=== PATIENT | male | born 1945 | race Caucasian/White ===

== ENCOUNTER 2016-07-03 16:45 | Inpatient (IN) | payer OTHER, MEDICARE ==
[~2016-07-03] VITALS: Ht 182.9 cm; Wt 65.0 kg
[2016-07-03] VITALS (7 sets, daily range): BP systolic 107–132; BP diastolic 73–89; PULSE 71–84; RESP 15–32; O2SAT 88–100
[~2016-07-03 16:45] MED LIST: AMLO-39 PO; LANS15CA6 PO; Lactulose PO; NADO20TA PO
[2016-07-03 17:38] LABS: Mean Corpuscular Volume 107.4 fL (81-100)
[2016-07-03 17:42] LABS: BASOPHILS % (AUTO) 0 % (0-3); EOSINOPHILS % (AUTO) 0 % (0-5); Mean Corpuscular Hemoglobin 35.8 pg (27.0-35.0); Platelet Count 122 bil/L (150-400)
--- NOTE | 2016-07-03 17:42 | ED.REPORT ---
HPI-General Illness Date of Service Jul 03, 2016 ED Provider: Steve Hamilton MD A 71 year old male with a history of smoking and hypertension is brought to the ED via EMS due to weakness. The pt has been experiencing falls for approximately one year. Per pt's , he has been falling less frequently in recent months (at a rate of slightly below once per month), but fell two days ago. The fall was unwitnessed and the pt is unsure of the cause. He has been experiencing lower back pain since, but denies other trauma. He was able to ambulate normally with his cane yesterday but was moving more slowly today. He was unable to ambulate properly at all this afternoon. The reports that the pt was unable to move his left leg, though his left arm was functioning normally. He denies left leg pain while walking. The pt has also been experiencing "cold-like" symptoms recently, including a productive cough and rough breath sounds. He denies fever, chills, dysuria, or vomiting. The pt has been seen by multiple specialists for his falls without a diagnosis. Nursing Notes Stated Complaint: GENERALIZED WEAKNESS Chief Complaint: General Complaint Nursing Notes Reviewed: Yes Allergies: Coded Allergies: Penicillins (Verified Allergy, Unknown, 09/30/14) Scheduled Amlodipine (Norvasc) 5 Mg Tablet 5 MG PO DAILY Aspirin (Aspirin) 81 Mg Tablet 81 MG PO DAILY Atorvastatin (Lipitor) 40 Mg Tablet 40 MG PO HS Nadolol (Nadolol) 20 Mg Tablet 20 MG PO DAILY Miscellaneous Medications ([stelara]) Unknown Strength Unknown Dose INJ General Time Seen by MD: 17:33 Chief Complaint Other (Fall/weakness) Hx Obtained From: Patient, Spouse, EMS Arrived By: Walk-in Sudden in Onset?: No Onset Occurred: More than a week ago... Recent Healthcare: No recent hospitalization, Recent doctor visit Similar Sx Previous: Yes Past Medical History Past Medical History HTN GERD Psoriasis Past Surgical History None Smoking History Current Every Day Smoker ("working on quitting") Social History Alcohol Use: "Social" Drug Use: Denies drug use Ambulatory Status Independent Review of Systems "rough breath sounds" Full Review of Systems Constitutional: Reports: Weakness - generalized, Denies: Chills, Fever Respiratory: Reports: Prod cough, clear GI: Denies: Vomiting Male: Denies Dysuria Musculoskeletal: Reports: Back pain Skin: Denies Rash Complete sys rev & neg: except as marked. Physical Exam Vital Signs Vital Signs Date Time Temp Pulse Resp B/P Pulse Ox O2 Delivery O2 Flow Rate FiO2 07/03/16 20:03 78 18 112/75 95 07/03/16 19:37 84 130/83 96 Nasal Cannula 3 07/03/16 18:20 81 25 107/73 88 Room Air 07/03/16 16:54 36.0 84 32 116/89 100 6 Initial VS: Reviewed General/Constitutional: Awake, Alert Head / Eyes: Atraumatic, Normocephalic, PERRL, EOMI ENT: Atraumatic, Airway patent, Mucous membranes moist Neck: Atraumatic, Supple, Full range of motion Respiratory / Chest: Atraumatic, Breath sounds = bilat, No respiratory distress diffuse expiratory wheezing tachypneic Cardiovascular: Heart rate NL, Regular rhythm distant heart sounds Abdomen: Atraumatic, Soft, No guarding, No rebound diffuse abdominal pain Back: Atraumatic, Full range of motion Upper Extremities Upper Extremity / MS: Atraumatic, Full range of motion Lower Extremity / Pelvis / MS: Atraumatic Skin: Atraumatic, Color NL, No rash, Warm, Dry Neurologic: Oriented X3, Speech NL left arm and left leg drift sensory loss of left side of face and right leg (pin prick less sharp) Psychiatric: Affect NL, Mood NL Interpretation & Diagnostics Interpretation & Diagnostics: MRI/MRA Head and Neck 12/21/2016: IMPRESSION: 1. No evidence of acute infarction 2. Central atrophy and small vessel ischemic changes, as described. 3. Normal intracranial circulation 4. Mild up to 50% narrowing at the origin of the left vertebral artery. Moderate to severe greater than 70% narrowing at the origin of the right vertebral artery. Lab Results Interpretation Result Diagram: 07/03/16 1657 07/03/16 1657 Test 07/03/16 16:57 07/03/16 19:45 White Blood Count 8.1th/mm3 (3.8-10.1) Red Blood Count 3.91mil/mm3 (4.40-5.80) Hemoglobin 14.0g/dL (13.8-17.2) Hematocrit 42.0% (41.0-50.0) Mean Corpuscular Volume 107.4fL (81-100) Mean Corpuscular Hemoglobin 35.8pg (27.0-35.0) Mean Corpuscular Hemoglobin Concent 33.3% (32.0-37.0) Red Cell Distribution Width 14.7% (12.3-15.4) Platelet Count 122bil/L (150-400) Neutrophils (%) (Auto) 73% (40-74) Lymphocytes (%) (Auto) 13% (14-46) Monocytes (%) (Auto) 5% (4-12) Eosinophils (%) (Auto) 0% (0-5) Basophils (%) (Auto) 0% (0-3) Band Neutrophils % 9% (1-5) Hold Purple Top Tube Received (Received) Hold Blue Top Tube Received (Received) Sodium Level 141mEq/L (134-144) Potassium Level 4.5mEq/L (3.5-5.2) Chloride Level 92mEq/L (97-108) Carbon Dioxide Level 20mmol/L (18-29) Blood Urea Nitrogen 31mg/dL (8-27) Creatinine 1.42mg/dL (0.76-1.27) Estimat Glomerular Filtration Rate 53mL/min (>59) Glucose Level 99mg/dL (60-99) Calcium Level 9.8mg/dL (8.5-10.1) Total Bilirubin 0.9mg/dL (0.0-1.2) Aspartate Amino Transf (AST/SGOT) 305U/L (0-50) Alanine Aminotransferase (ALT/SGPT) 112U/L (0-44) Alkaline Phosphatase 162U/L (25-160) Total Protein 8.6g/dL (6.4-8.4) Albumin 3.7g/dL (3.4-5.0) Hold Red Top Tube Received (Received) Hold [place] Top Tube Received (Received) Lactic Acid Level 3.2mmol/L (0.4-2.0) ECG Interpretation ECG Interpretation: normal sinus rhythm with a rate of 82 Time: 17:32 Interpreted by: ED physician X-Ray Chest Interpretation Chest Xray Interpretation: IMPRESSION: Persistent minimal costophrenic angle blunting without gross consolidation. Dictated by: Estelle Lowe M.D. on 07/03/2016 at 17:43 Approved by: Estelle Lowe M.D. on 07/03/2016 at 17:44 Interpretation / Wet Read by: Interpret - Radiologist Re-Eval/Medical Decision Source of Hx: Old records Time of Eval: 18:55 Patient Status: Condition improved Re-Evaluation/Progress Note: Pt rechecked, who is resting comfortably. Neurologic exam is normal. He is informed of lab results and diagnosis. Options for both admission for discharge are discussed, and pt chooses to remain in the hospital. The pt understands and agrees with the plan. All questions are addressed at this time. Consultation : Referral / Consult Name: Danna Calixto DO Consulted With: Hospitalist Call Returned at: 19:54 Granite Installer: Agrees with eval, Agrees with plan, Accepts admit Note: Spoke with Dr. Calixto, hospitalist, regarding pt's case. Dr. Calixto agrees with the evaluation and agrees to admit the pt. Counseled Regarding: Diagnosis, Lab results, Need for admission Discharge & Departure Primary Impression: Weakness Additional Impressions: Hypoxia COPD exacerbation Disposition: ADMITTED TO HOSPITAL Discharge Condition All VS Reviewed: Yes Condition: Stable Referrals: Piotr Samano MD (PCP) Maxx Attestation Portions of this note were transcribed by Sukhjinder Hernandez. I, Dr. Hamilton personally performed the history, physical exam and medical decision-making; I reviewed and confirmed the accuracy of the information in the transcribed note. Signed by: Maxx Christianson, 07/03/2016 and 19:59. copies to: Piotr Samano MD Risk Factors NIH Stroke Scale Level of Consciousness: Alert and responsive (0) Ask Month & Age: Both questions right (0) Open/Close Eyes/Hand Spring Coiler: Performs both tasks (0) Horizontal EO Movements: None (0) Visual Aaron: No visual loss (0) Facial Palsy: Normal symmetry (0) Right Arm Motor Drift (10s): No drift 10 sec (0) Left Arm Motor Drift (10s): No drift 10 sec (0) Right Leg Motor Drift (5s): No drift 5 sec (0) Left Leg Motor Drift (5s): No drift 5 sec (0) Limb Ataxia FNF/Heel-Prasad: No ataxia (0) Sensation (Arms/Legs/Face): Pinprick less sharp (1) (inconsistent) Language Aphasia: No aphasia, normal (0) Dysarthria: No dysarthria, normal (0) Extinction/Inattention: No exctinct/inattent (0) NIHSS Score: 3 Time NIHSS Performed: 17:55 Date NIHSS Performed: Jul 03, 2016 Steve Hamilton MD Jul 03, 2016 17:42 SUKHJINDER HERNANDEZ Jul 03, 2016 18:17
--- NOTE | 2016-07-03 17:45 | DRSVH ---
PROCEDURE: X-RAY CHEST ONE VIEW, PORTABLE ([id number]) INDICATIONS: cough TECHNIQUE: One view of the chest was acquired. COMPARISON: [facility], CR, CHEST 1VW (PORTABLE), 09/30/2014, 10:04. [facility], CR, XR CHEST 2VW, 07/17/2015, 11:49. FINDINGS: Surgical changes and devices: None. Lungs and pleura: There is a persistence appearance of costophrenic angle blunting. No gross consolid ations. Mediastinum: Mediastinal contours appear normal. Heart size is normal. Bones and chest wall: No suspicious bony lesions. Overlying soft tissues appear unremarkable. IMPRESSION: Persistent minimal costophrenic angle blunting without gross consolidation. Dictated by: Estelle Lowe M.D. on 07/03/2016 at 17:43 Approved by: Estelle Lowe M.D. on 07/03/2016 at 17:44
[2016-07-03 18:00] LABS: NEUTROPHILS % (AUTO) 73 % (40-74)
[2016-07-03 18:01] LABS: MONOCYTES % (AUTO) 5 % (4-12)
[2016-07-03] MEDS ORDERED: cefTRIAXone Inj 2,000 MG in Dextrose 5% Minibag Plus 50 ML IV ONE (19:15)
[2016-07-03] MEDS ORDERED: MethylprednisoLONE Sodium Succinate 62.5 mg/mL 2 mL Inj IVPUSH ONE (19:15)
[2016-07-03] MEDS ORDERED: Azithromycin Inj 500 MG in Dextrose 5% 250 ML IV ONE (19:15)
[2016-07-03] MEDS ORDERED: Polyethylene Glycol (PEG) 17 Gm Powder PO PRN ×2 (20:00→20:10)
[2016-07-03] MEDS ORDERED: Ondansetron 2 mg/mL 2 mL Inj IVPUSH PRN (20:00)
[2016-07-03] MEDS ORDERED: Albuterol 2.5 mg/3 mL Inhalation Solution NEB PRN (20:00)
[2016-07-03] MEDS ORDERED: Alum-Mag Hydrox-Simeth 30 mL Suspension PO PRN ×2 (20:00→20:10)
[2016-07-03] MEDS ORDERED: Ondansetron 2 mg/mL 2 mL Inj IV PRN (20:10)
[2016-07-03] MEDS ORDERED: ASPI-973 PO (20:18)
[2016-07-03] MEDS ORDERED: LIP40 PO (20:18)
[2016-07-03] MEDS ORDERED: Albuterol-Ipratropium 3 mL Inhalation Solution NEB SCH (20:30)
[2016-07-03] MEDS ORDERED: stelara INJ (20:41)
[2016-07-03 21:20] LABS: APPEARANCE,URINE CLEAR (CLEAR,HAZY); COLOR,URINE YELLOW (YELLOW); OCCULT BLOOD,URINE SMALL (NEGATIVE); PH,URINE 5.5 (5.0-8.0); UROBILINOGEN,URINE NORMAL (NORMAL)
[2016-07-03] MEDS ORDERED: 0.9% Sodium Chloride 250 ML ONE (21:21)
[2016-07-03] MEDS: Heparin 5,000 Unit/mL Inj SUBQ SCH (21:37)
[2016-07-03] MEDS: Albuterol-Ipratropium 3 mL Inhalation Solution NEB SCH (21:40)
--- NOTE | 2016-07-03 22:16 | NUR ---
Admit Note Pt arrived to floor at around 2100. Alert and oriented. Walked to bed with 2x assist but very unsteady and leaning back. present for a little and then left home. Med req and admit done in ER. Swallow screen passed. Q4 neuro checks normal initial.
[2016-07-03] MEDS: 0.9% Sodium Chloride 1,000 ML IV SCH (22:24)
[2016-07-04] VITALS (13 sets, daily range): BP systolic 125–151; BP diastolic 73–95; PULSE 64–75; RESP 16–20; O2SAT 76–97
[2016-07-04] MEDS: Heparin 5,000 Unit/mL Inj SUBQ SCH ×4 (00:30→23:45)
--- NOTE | 2016-07-04 00:40 | PCM.HPMED ---
Subjective Date of Service Jul 03, 2016 Primary Provider: Admitting Physician: Danna Calixto DO Primary Care Physician: Piotr Samano MD Attending Physician: Danna Calixto DO Admit Status: From the Emergency Department Chief Complaint: Generalized weakness History of Present Illness: Patient is a 71 year old male with a history of hypertension, alcohol and tobacco abuse, psoriasis, possible cirrhosis and COPD is brought to the ED via EMS due to weakness. The patient has been experiencing falls for approximately one year. Per patient's , he has been falling less frequently in recent months, but fell two days ago during dinner. Patient states at that time he felt like he was about to pass out. The fall was unwitnessed and the patient is unsure of the cause. He has been experiencing lower back pain since, but denies other trauma. He denies any current pain and/or use of Tylenol and/or Ibuprofen. He was able to ambulate normally with his cane yesterday but was moving more slowly today. He was unable to ambulate properly at all this afternoon. The reports that the patient was unable to move his left leg, though his left arm was functioning normally. He denies left leg pain while walking. The patient has also been experiencing "cold-like" symptoms recently, including a productive cough and rough breath sounds. He denies fever, chills, dysuria, or vomiting. The patient has been seen by multiple specialists for his falls without a diagnosis. He states he has been a heavy drinker for bout 50 years, currently he is having two drinks per day. His last drink was today and consisted of two glasses of wine. He has been smoking for about 30 years and currently is smoking one pack a day. His PCP is Dr. Samano at [facility] in [place]. In the ED temp was 36.0 C, pulse 81, respiration 25, BP 107/73, pulse ox 88% on room air. Patient's CBC significant for normal WBC at 8.1, H&H 14.0&42. Chem Na 141, K 4.5, Cl 92, CO2 20, BUN 31, Cr 1.42, lactic acid 3.2, AST 305, ALT 112. EKG showed NSR with a rate of 82. Chest x-ray revealed persistent minimal costophrenic angle blunting without gross consolidation. Review of Systems: Complete review of systems was negative except as noted in HPI. Allergies Coded Allergies: Penicillins (Verified Allergy, Unknown, 09/30/14) Home Medications Amlodipine 5 mg PO daily Nadolol 20 mg PO daily Aspirin 81 mg PO daily Atorvastatin 40 mg PO daily Stelara, IM injections for psoriasis treatment given last month (first dose), next dose scheduled later this month PMH HTN GERD Psoriasis Possible COPD Possible cirrhosis Alcohol dependence Nicotine dependence Surgical History None Family History Heart disease in father and brother Social History Hx Alcohol Use: Yes Alcoholic Drinks Per Day: 3/day; wine Hx Substance Use: No Hx Tobacco Use: Yes Smoking Status: Current Every Day Smoker ("working on quitting") Living Arrangement: with Family Exam Vital Signs Vital Sign - Last Date Time Temp Pulse Resp B/P Pulse Ox O2 Delivery O2 Flow Rate FiO2 07/03/16 21:40 71 18 97 Nasal Cannula 2.00 07/03/16 21:10 36.8 132/83 Exam General: Alert, Cooperative, No Acute Distress Head: Normal (atraumatic) Eyes: PERRLA, EOMI Nose: Mucous Membr Moist/[place] Mouth: Mucous Membr Moist/[place] Neck: Supple (non-tender, no lymphadenopaty, no thyromegaly) Chest & Lungs: Diminished breath sounds (diffuse), diffuse expiratory wheezing b/l anterior > posterior Cardiovascular: RRR, No Murmurs/Rubs/Gallops Abdomen: Non-distended, No masses, Normoactive bowel tones, Soft, mild tenderness to palpation at the RUQ Musculoskeletal: lateral left hip tender to palpation, decreased, painful ROM on internal rotation Extremities: No edema, psoriatic plaques on the left foot Neurological: Grossly Neurologically Intact, Normal Speech, Strength Normal 4/ 4 ext, Sensation Intact, mild tremor (at baseline per ) Lab and Diagnostics Labs Ammonia level pending Result Diagram: 07/03/16 1657 07/03/16 1657 Microbiology Blood cultures pending X-Rays, CTs and MRIs PROCEDURE: X-RAY CHEST ONE VIEW, PORTABLE ([id number]) IMPRESSION: Persistent minimal costophrenic angle blunting without gross consolidation. Dictated by: Estelle Lowe M.D. on 07/03/2016 at 17:43 Approved by: Estelle Lowe M.D. on 07/03/2016 at 17:[address] Hamilton, MRI/MRA Head & Neck done in December of 2015 showed: 1. No evidence of infarction 2. Central atrophy and small vessel ischemic changes 3. Normal intracranial circulation 4. Mild up to 50% narrowing at the origin of the left vertebral artery. Moderate to severe greater than 70% narrowing at the origin of the right vertebral artery. 12-lead ECG NSR with a rate of 82 Assessment & Plan This is a 71 year old male with a history of hypertension, alcohol and tobacco abuse, psoriasis, possible cirrhosis and COPD admitted for hypoxia and work up of generalized weakness. # Hypoxia, acute, present on admission - SpO2 88% on RA on admission - O2 2L NC, O2 goal 90-92% - AccuNeb q2h PRN and DuoNeb q6h - Continue to monitor # Possible COPD exacerbation, acute, present on admission - Patient is a chronic smoker, he states he was told "he might have COPD", not on O2 at home, admits to pursed lip breathing - URI symptoms x 10 days, patient received a dose of Azithromycin and Ceftriaxone as well as Methylprednisolone 125 mg once in the ER - CXR showed persistent costophrenic angle blunting w/o gross consolidation - CHARITY resp. viruses panel pending - Will continue antibiotics (9% band neutrophils): check for QT on EKG; also patient has noted allergy to penicillins, monitor for any side effects - Start Prednisone, 60 mg PO daily, continue supplemental O2, continue to monitor # Possible TIA, acute, present on admission - Reported left leg weakness on admission, though normal left arm function - Hx of multiple falls, worked up by multiple specialists w/o a diagnosis - CT brain w/o con in 2014 showed chronic microvascular ischemic changes - MRI/MRA Head & Neck done in December of 2015 showed no evidence of infarction, central atrophy and small vessel ischemic changes, normal intracranial circulation, mild up to 50% narrowing at the origin of the left vertebral artery , moderate to severe greater than 70% narrowing at the origin of the right vertebral artery. - Swallow eval normal - Left leg weakness still present - PT and OT eval in the morning - MR brain m/o con in the morning, consider ECHO # Anion gap metabolic acidosis, acute, present on admission - Notable elevated lactic acid of 3.2 - NS IVF at 125 mls/hr and monitor lactic acid levels # Chronic renal insufficiency, present on admission, stable - Cr of 1.42 on admission, compared to 1.47 as of September 2014 - Avoid nephrotoxic meds # Elevated transaminase level, chronic, present on admission - AST & ALT have been previously elevated, however, doubled since 2015; current AST & ALT are 305 & 112, consistent with EtOH use - Patient previously denied any hx of blood transfusions, tattoos, IV drug use or hx of hepatitis - Hepatitis panel negative in 2015 - Recommend outpatient work up with PCP # Possible acute EtOH induced hepatitis and/or cirrhosis, unclear acuity - Worsening AST& ALT levels would be consistent for EtOH induced hepatitis - US abdomen in September 2014 revealed diffusely heterogeneous liver echotexture w/ o sonographic explanation for elevated transaminase levels - Ammonia labs pending # EtOH dependence, chronic, present on admission -Hx of daily alcohol use for years - Initiate CIWA protocol if signs of EtOH withdraw - ECHO to look for EtOH induced cardiomegaly # Thrombocytopenia, unknown acuity, present on admission - Platelet count 122 - INR pending # Hip pain, acute, present on admission - Most likely d/t fall 2 days ago - Very tender lateral left hip to palpation with decreased internal rotation - X-ray left hip in the morning - Tramadol 50 mg for pain control # Hypertension, chronic, stable - Continue home medications Pain Evaluation: Adequate Pain Control GI Prophylaxis: H2 pam VTE Prophylaxis: Sub-Q Heparin (Unfractionated) Resuscitation Status: CPR: Attempt Resuscitation Attending Statement The patient was seen and examined together with house staff on 07/03/2016 and I agree with the history, exam and plan as outlined in the note above. copies to: Piotr Samano MD, Oksana S DO Jul 03, 2016 22:27 Danna Calixto DO Jul 04, 2016 02:56
[2016-07-04 00:59] LABS: INR 0.95 ratio
[2016-07-04] MEDS: Albuterol-Ipratropium 3 mL Inhalation Solution NEB SCH ×4 (02:30→19:50)
[2016-07-04] MEDS: 0.9% Sodium Chloride 1,000 ML IV SCH ×2 (06:35→14:58)
[2016-07-04] MEDS ORDERED: predniSONE 20 mg Tablet PO SCH (08:30)
[2016-07-04 08:31] LABS: BASOPHILS % (AUTO) 0 % (0-3); EOSINOPHILS % (AUTO) 0 % (0-5); MONOCYTES % (AUTO) 3.7 % (4-12); NEUTROPHILS % (AUTO) 89.8 % (40-74); Platelet Count 104 bil/L (150-400)
--- NOTE | 2016-07-04 08:57 | NUR ---
Off Unit: Patient transported to radiology via wheelchair accompanied by civilian technician @ approx [phone]. technical data analyst notified.
--- NOTE | 2016-07-04 11:08 | NUR ---
Microbiology: Notified of 4 positive blood cultures and positive for human metapneumovirus. MD notified. Droplet/Contact precautions in place.
--- NOTE | 2016-07-04 11:16 | NUR ---
Evaluation completed. Please go to "Notes" then click on "Assessments and Notes" (bottom left corner of screen). Then select appropriate discipline tab on top of screen.
--- NOTE | 2016-07-04 11:17 | NUR ---
Evaluation completed. Please go to "Notes" then click on "Assessments and Notes" (bottom left corner of screen). Then select appropriate discipline tab on top of screen.
[2016-07-04] MEDS ORDERED: Vancomycin Dose per Pharmacist XX SCH (13:30)
[2016-07-04] MEDS ORDERED: Vancomycin Serum Trough XX ONE (14:15)
[2016-07-04] MEDS ORDERED: Vancomycin Inj 1,500 MG in 0.9% Sodium Chloride 500 ML IV ONE (14:15)
--- NOTE | 2016-07-04 14:56 | PCM.PHAPRO ---
Progress Date of Service: Jul 04, 2016 Generalized weakness Dx: bacteremia, sepsis, MRSA coverage PMH: chronic renal insufficiency (stable), HTN, COPD, GERD, possible cirrhosis vancomycin trough goal 15-20 give vancomycin loading dose 1.5gm x 1 start vancomycin 750mg IV q12h draw next trough 430AM on 07/06 per pharmacy Shlomo Anthony PharmD Jul 04, 2016 14:56
--- NOTE | 2016-07-04 15:14 | DRSVH ---
PROCEDURE: X-RAY PELVIS W/LAT HIP (LT) ([id number]) INDICATIONS: Left hip pain after a fall 2 days ago TECHNIQUE: AP pelvis with lateral view(s) of the left hip(s). COMPARISON: None. FINDINGS: Bones: No fractures or dislocations. Pelvic ring appears intact. No suspicious bony lesions. Soft tissues: The visualized bowel gas pattern is normal. No suspicious soft tissue calcifications. IMPRESSION: No fracture or dislocation. If clinical symptoms persist or clinical suspicion for patho logy is high, a repeat examination in 7-10 days, or advanced imaging such as CT or MRI is suggested f or further evaluation. Dictated by: Sunny Rico M.D. on 07/04/2016 at 9:48 Approved by: Sunny Rico M.D. on 07/04/2016 at 9:50
--- NOTE | 2016-07-04 15:15 | DRSVH ---
[facility] [address] [place] [address] Echocardiogram Report Name: JUDY BECKER WStudy Date: 07/04/2016 Height: 7 2 in Hospital Exam Location: [facility] Weight: 1 43 lb Gender: Male BSA: 1.8 m2 : 1945 Age: 71 yrs BP: 136/8 4 mmHg Reason For Study: CVA Ordering Physician: HOSPITALIST [facility] Performed By: Misty Billings Referring Physician: DELFINO Rivers Interpretation Summary A two-dimensional transthoracic echocardiogram with color flow and Doppler was performed in limited views only. The left ventricle is normal in size, wall thickness, and systolic function without any focal wall motion abnormalities. The ejection fraction is estimated to be 60-65%. LVEF has not changed since prior study. The right ventricle grossly appears normal in size with probable normal systolic function. The left atrial size is normal. Right atrial size is normal. The interatrial septum is intact with no evidence for an atrial septal defect. There is no Doppler evidence for an interatrial shunt. The aortic root is normal size. There is moderate to severe luminal irregularity and echogenicity in the abdominal aorta, suggestive of aortic atherosclerotic disease. No obvious source for cardioembolic CVA/TIA. Procedure: A two-dimensional transthoracic echocardiogram with color flow and Doppler was performed in limited views only. Comparison is made with the echocardiogram of 10-01-14. The patient was in normal sinus rhythm during the exam. Left Ventricle: The left ventricle is normal in size, wall thickness, and systolic function without any focal wall motion abnormalities. The ejection fraction is estimated to be 60-65%. Right Ventricle: The right ventricle grossly appears normal in size with probable normal systolic function. Atria: The left atrial size is normal. Right atrial size is normal. The interatrial septum is intact with no evidence for an atrial septal defect. There is no Doppler evidence for an interatrial shunt. Mitral Valve: The mitral valve is grossly normal. There is no mitral regurgitation noted. Aortic Valve: The aortic valve opens well. No aortic regurgitation is present. Tricuspid Valve: The tricuspid valve is normal in structure and function. Pulmonic Valve: The pulmonic valve is not well seen, but is grossly normal. Great Vessels: The aortic root is normal size. There is severe luminal irregularity and echogenicity in the abdominal aorta, suggestive of aortic atherosclerotic disease. The IVC is of normal diameter and collapses greater than 50% with a sniff. This suggests a low right atrial pressure of 3 mm Hg. Pericardium/ Pleura There is no pericardial effusion. There is no pleural effusion. MMode/2D Measurements & Calculations LVIDd: 4.5 cm LA dimension: 3.3 cm RA long axis Ao root diam LVIDs: 2.9 cm IVC diam: 1.7 cm FS: 36.1 % RA area Aortic Jxn: 2.5 cm IVSd: 0.83 cm Ao Arch Diam (Prox LVPWd: 0.88 cm : 12.7 cm Trans): 2.6 cm RA vol : 29.4 ml RA : 15.9 mm/ RVDd major : 6.0 cm LV west. diameter/BSA LV sys. diameter/BSA RVD1 (basal) RVD2 (mid): 3.0 cm (cm/m^2): 2.5 (cm/m^2): 1.6 Doppler Measurements & Calculations Ao V2 max: 117.6 cm/sec MV E max dennis MV E/A MV dec time Ao max P.5 mmHg : 54.9 cm/sec : 0.67 : 0.25 sec Ao mean P.2 mmHg MV A max dennis : 81.7 cm/sec MV P1/2t: 75.4 msec MV P1/2t max dennis Ao V2 mean : 66.4 cm/sec MVA(P1/2t): 2.9 cm2 Ao V2 VTI: 20.0 cm Reading Physician:MURPHY
--- NOTE | 2016-07-04 16:37 | NUR ---
Activity: Patient encouraged to be OOB to chair for meals per PT recommendation. Refused to be in chair for lunch, however did sit on side of bed for meal. Patient also refusing to get OOB to chair and/or sit on side of bed for dinner. Addendum: 07/04/16 at 1755 by MALLY GARRISON RN Patient decided to sit on side of bed for dinner when tray arrived. Has been sitting on side of bed for approx 45 min. Tolerating well, O2 sats 96%, no c/o increase in hip pain while up.
--- NOTE | 2016-07-04 17:26 | PCM.PNMED ---
Subjective Date of Service Jul 04, 2016 Subjective Renan Campbell is a 71-year-old male with a past medical history significant for hypertension, alcohol and tobacco use disorder, psoriasis, possible cirrhosis and COPD who was admitted for acute respiratory failure and generalized weakness. Hospital day #1. Overnight: There were no acute events. Telemetry overnight was sinus rhythm, heart rate 60 to 80's, without ectopy. The patient is resting in bed comfortably and in no acute distress. He denies headache, shortness of breath, chest pain, abdominal pain, nausea, vomiting, fever, chills, dysuria, diarrhea or constipation. He endorses left hip pain. He is voiding and eliminating without difficulty. He is severely weak and is not ambulating and requires assistance for transfers. . Exam Vital Signs Vital Sign - Last Date Time Temp Pulse Resp B/P Pulse Ox O2 Delivery O2 Flow Rate FiO2 07/04/16 16:45 64 20 95 Room Air 07/04/16 10:56 36.8 151/95 07/04/16 05:45 2.00 Intake and Output 07/03/16 07/03/16 07/04/16 Cumulative From/Thru 15:00 23:00 07:00 07/03/16 16:54 - 07/04/16 06:39 Intake Total 1168 ml 1168 ml Output Total 150 ml 150 ml Balance 1018 ml 1018 ml Intake Oral 118 ml 118 ml IV Total 1050 ml 1050 ml Output Urine Total 150 ml 150 ml # Bowel Movements 0 0 Exam General: Elderly gentleman in no acute distress, cachectic, appropriately interactive HEENT: Normocephalic, atraumatic. External ears without defect. Pupils equal, round, and reactive to light. Anicteric sclerae, moist conjunctivae, and no lid lag. Oropharynx free of erythema and cobble stoning with moist mucosa. Neck: Supple with full range of motion. No jugular venous distension. No bruits. No lymphadenopathy or thyromegaly. Cardiovascular: Regular rate and rhythm with no murmurs, rubs, or gallops appreciated Pulmonary: Clear to auscultation bilaterally with no crackles, wheezes, or rhonchi. Normal respiratory effort with no use of accessory muscles. Abdomen: Soft, scaphoid, nontender, nondistended. No hepatosplenomegaly or masses appreciated. Extremities: No clubbing, cyanosis, or edema. Pinpoint tenderness over left posterior hip. Skin: Psoriatic rash on left ankle with mild erythema and warmth. Neurological: Cranial nerves grossly intact. Severe generalized weakness Psychiatric: Normal mood and affect. Alert and oriented to person, place, and time. . IVs and Medications Medications Reviewed: Medications were reviewed in detail Lab and Diagnostics Item Value Date Time Calcium Level 8.7 mg/dL 07/04/16 0814 Total Bilirubin 0.6 mg/dL 07/04/16 0814 Aspartate Amino Transf (AST/SGOT) 414 U/L H 07/04/16 0814 Alanine Aminotransferase (ALT/SGPT) 245 U/L H 07/04/16 0814 Alkaline Phosphatase 161 U/L H 07/04/16 0814 Total Protein 7.0 g/dL 07/04/16 0814 Albumin 2.8 g/dL L 07/04/16 0814 Ammonia 86 ug/dL H 07/03/162151 Result Diagram: 07/04/16 0807/04/16813 Microbiology Blood cultures positive 4:4 with gram-positive cocci probable strep. . X-Rays, CTs and MRIs X-RAY CHEST ONE VIEW, PORTABLE IMPRESSION: Persistent minimal costophrenic angle blunting without gross consolidation. Dictated by: Estelle Lowe M.D. on 07/03/2016 at 17:43 Approved by: Estelle Lowe M.D. on 07/03/2016 at 17:44 . Assessment & Plan Renan Campbell is a 71-year-old male with a past medical history significant for hypertension, alcohol and tobacco use disorder, psoriasis, possible cirrhosis and COPD who was admitted for acute respiratory failure and generalized weakness. Hospital day #1. 1. Severe sepsis, present on admission. Resolved. - SIRS criteria met including: Tachypnea (respiratory rate 34), probable tachycardia however on a beta pam, likely sources include left lower extremity cellulitis and pulmonary. - Early goal-directed therapy met including: IV fluid resuscitation and broad- spectrum antibiotics. 2. Acute hypoxemic respiratory failure, present on admission. Active. - SpO2 88% on RA on admission. - O2 2L NC, O2 goal 90-92%. - AccuNeb every 2 hours as needed for shortness of breath and DuoNeb 4 times a day while awake. - Continue to monitor vital signs closely. 3. Acute upper respiratory tract infection, secondary to human metapneumovirus , present on admission. Active. - Patient is a chronic smoker and presented with URI symptoms x 10 days. - Received Azithromycin 500 mg IV 1 and Ceftriaxone 1 g IV 1, as well as, Methylprednisolone 125 mg IV 1 in the ER. Continue azithromycin and ceftriaxone. Added vancomycin dosing per pharmacist. - Prednisone 60 mg started. However, patient is immunocompromised due to TNF alpha inhibitor for psoriasis. Discontinued glucocorticoid at this time. - Chest x-ray showed persistent costophrenic angle blunting without gross consolidation, as above. - Respiratory viral PCR positive for human metapneumovirus, as above. - Continue supplemental oxygen as needed. 4. Acute bacteremia, present on admission. Active. - Blood cultures are positive in 4:4 bottles for gram-positive cocci, as above. - Continue antibiotics as above in problem #3. 5. Acute left lower extremity cellulitis, present on admission. Active. - Continue antibiotics as above in problem #3. - MRSA screen ordered and pending. - Patient recently had a TNF alpha inhibitor injection. We will discontinue this medication during acute infection. 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 6. Acute left hip pain after recent ground-level fall, present on admission. Active. - Likely due to recent fall 2 days ago with history of multiple falls. This has been worked up by multiple specialists without an active diagnosis. - CT brain w/o con in 2014 showed chronic microvascular ischemic changes. - MRI/MRA Head & Neck done in December of 2015 showed no evidence of infarction, central atrophy and small vessel ischemic changes, normal intracranial circulation, mild up to 50% narrowing at the origin of the left vertebral artery , moderate to severe greater than 70% narrowing at the origin of the right vertebral artery. - PT and OT evaluation in the morning. - Very tender lateral left hip to palpation with decreased internal rotation. - Left hip x-ray pending. - Tramadol 50 mg for pain control. 7. Acute anion gap metabolic acidosis, present on admission. Resolved. - Initial lactic acid of 3.2. Resolved with fluid resuscitation. - Continue NS IVF at 125 mL/hr. 8. Elevated transaminase level, chronic, present on admission. Active. - AST & ALT have been previously elevated, however, doubled since 2014; current AST & ALT are 305 & 112, consistent with EtOH use. - Patient previously denied any hx of blood transfusions, tattoos, IV drug use or hx of hepatitis - Hepatitis panel negative in 2015. - US abdomen in September 2014 revealed diffusely heterogeneous liver echotexture w/ o sonographic explanation for elevated transaminase levels. - Ammonia slightly elevated continue to monitor for signs of hepatic encephalopathy. - Recommend outpatient work up with PCP 9. Alcohol use disorder, chronic, present on admission. - History of daily alcohol use for years. - Ordered Ativan 0.5 mg IV every 6 hours as needed for anxiety. - Echocardiogram ordered to look for EtOH induced cardiomegaly. 10. Thrombocytopenia, unknown acuity, present on admission. Active. - Platelet count 122. - INR normal at 0.95. Chronic problems: Chronic kidney disease stage II, present on admission. Stable. - Cr of 1.42 on admission, compared to 1.47 as of September 2014 - Avoid nephrotoxic meds Chronic problems: Hypertension, chronic. Stable. - Continue home medications. PRN antiemetics: Zofran and Maalox. PRN bowel regimen: Senna and MiraLAX. PRN analgesics: Tylenol. Disposition: Patient will discharge home depending on clinical course in several days. . GI Prophylaxis: H2 pam VTE Prophylaxis: Sub-Q Heparin (Unfractionated) Resuscitation Status: CPR: Attempt Resuscitation Attending Statement The patient was seen and examined together with Dr. Steele on 07-04-16 and I agree with the history, exam and plan as outlined in the note above. Rosmery Steele DO Jul 04, 2016 17:26 Warren Rhodes MD Jul 05, 2016 07:48
[2016-07-04] MEDS ORDERED: Azithromycin Inj 500 MG in Dextrose 5% w/Vial Mate 250 ML IV SCH (20:00)
[2016-07-04] MEDS ORDERED: cefTRIAXone Inj 1,000 MG in Dextrose 5% Minibag Plus 50 ML IV SCH (21:30)
[2016-07-05] VITALS (11 sets, daily range): BP systolic 115–150; BP diastolic 73–95; PULSE 55–78; RESP 18–20; O2SAT 88–97
[2016-07-05] MEDS: 0.9% Sodium Chloride 1,000 ML IV SCH ×2 (04:23→06:05)
[2016-07-05] MEDS ORDERED: Vancomycin Inj 750 MG in 0.9% Sodium Chloride 250 ML IV SCH (05:00)
--- NOTE | 2016-07-05 05:46 | NUR ---
Respiration Pt occasional nonproductive cough, denies SOB while in bed, not get up at night. 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 Decreased lung sounds bilaterally, A few wheezes at bilateral lungs, no crackles. Tele:SR 60S per air sampling and monitoring. VSS, sleeping most of night comfortably. Droplet/Contact precaution due to positive human metapneumovirus.
[2016-07-05] MEDS: Albuterol-Ipratropium 3 mL Inhalation Solution NEB SCH ×3 (07:32→21:33)
[2016-07-05 08:55] LABS: BASOPHILS % (AUTO) 0 % (0-3); EOSINOPHILS % (AUTO) 0 % (0-5); MONOCYTES % (AUTO) 7.7 % (4-12); Mean Corpuscular Hemoglobin 33.3 pg (27.0-35.0); Mean Corpuscular Volume 99.7 fL (81-100); NEUTROPHILS % (AUTO) 86.8 % (40-74); Platelet Count 103 bil/L (150-400)
[2016-07-05] MEDS: Heparin 5,000 Unit/mL Inj SUBQ SCH ×2 (09:00→17:08)
[2016-07-05] MEDS ORDERED: 0.9% Sodium Chloride 1,000 ML IV SCH (09:55)
[2016-07-05] MEDS ORDERED: KCl 40 mEq/D5W 500 mL 40 MEQ in IV Premix 500 EACH IV ONE (10:10)
--- NOTE | 2016-07-05 14:24 | NUR ---
Social Work Initial Assessment and CD assessment: SW met with patient at bedside to discuss discharge plan. Patient is a 71 year old male admitted on 07/03/16 for weakness, hypoxia, and exacerbated COPD. Patient resides in [facility] with . Patient payer as [employer] and Medicare. 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 Patient PCP as MD Samano. Patient states having no previous HHC or SNF history in past. Patient has a cane for use. Patient has no home 02 at home. Patient has no AD and declined information at this time. SW discussed alcohol use with patient. SW inquired about drink of preference and states that he drinks vodka and soda occasionally. Patient states he drinks socially and states not being an active drinker. Mention of possible cirrhosis per EMR notes. Pt denied further discussion about use. SW will continue to follow up with patient to further conduct CD assessment. PT notes reviewed and recommendations for HHC and walker. SW provided patient with HHC choice list for review. Patient states having no HHC preference. Choice as [facility] per vendor calendar availability. SW will continue to follow pending further clinical course. SW also left voice mail message for Drea, to discuss discharge plans. PLAN: Home with and HHC via [facility]. Access provided. Face to face pending. SW will continue to follow for 02 related needs upon discharge. Lazaro ALICIA Addendum: 07/05/16 at 1439 by MARISEL JACOB Amended: Links added.
[2016-07-05] MEDS: cefTRIAXone Inj 2,000 MG in Dextrose 5% Minibag Plus 50 ML IV SCH (20:23)
--- NOTE | 2016-07-05 20:23 | PCM.PNMED ---
Subjective Date of Service Jul 05, 2016 Subjective Renan Campbell is a 71-year-old male with a past medical history significant for hypertension, alcohol and tobacco use disorder, psoriasis, possible cirrhosis and COPD who was admitted for acute respiratory failure and generalized weakness. Hospital day 2. No acute events overnight. The patient is resting in bed comfortably and in no acute distress. He denies headache, shortness of breath, chest pain, abdominal pain, nausea, vomiting, fever, chills, dysuria, diarrhea or constipation. He states his left hip is feeling better. He is voiding and eliminating without difficulty. He is severely weak and is not ambulating and requires assistance for transfers. His is by his bedside. Exam Vital Signs Vital Sign - Last Date Time Temp Pulse Resp B/P Pulse Ox O2 Delivery O2 Flow Rate FiO2 07/05/16 17:40 36.6 67 18 143/84 92 Nasal Cannula 2.00 Intake and Output 07/04/16 07/04/16 07/05/16 Cumulative From/Thru 15:00 23:00 07:00 07/03/16 16:54 - 07/04/16 20:22 Intake Total 2189 ml 3357 ml Output Total 1425 ml 1575 ml Balance 764 ml 1782 ml Intake Oral 754 ml 872 ml IV Total 1435 ml 2485 ml Output Urine Total 1425 ml 1575 ml # Bowel Movements 0 0 Exam General: Elderly gentleman in no acute distress, cachectic HEENT: NCAT, PERRL, anicteric sclerae Neck: Supple, no JVD, no lymphadenopathy Cardiovascular: RRR, no m/r/g Lungs: CTAB, normal respiratory effort with no use of accessory muscles. Abdomen: Soft, nontender Extremities: Pinpoint tenderness over left posterior hip. Skin: Psoriatic rash on left ankle with mild erythema and warmth. IVs and Medications Medications Reviewed: Medications were reviewed in detail Lab and Diagnostics Result Diagram: 07/05/1682907/05/16829 Microbiology Microbiology CHARITY STREP PNEUMONIAE AG URINE Final 07/05/16-1015 STREP PNEUMO AG POSITIVE Tests performed directly on clinical specimens are intended for screening purposes only and should augment, not replace, culture procedures Please Note: Streptococcus pneumoniae vaccine may cause false positive results in urine in the 48 hours following injection. Hence, it is recommended that the Alere Strep pneumoniae Antigen testing not be performed within five days of receiving the S. pneumoniae vaccine Organism 1 STREP PNEUMONIAE ANTIGEN DATE CALLED: 07/05/16 TIME CALLED: 1014 FLOOR/DOCTOR: CALLED PREVIOUSLY Microbiology ADENOVIRUS RESPIRATORY PCR Final 07/04/16 Not Detected CORONOVIRUS 229E Final 07/04/16 Not Detected CORONOVIRUS HKU1 Final 07/04/16 Not Detected CORONOVIRUS NL63 Final 07/04/16 Not Detected CORONOVIRUS OC43 Final 07/04/16 Not Detected INFLUENZA A PCR Final 07/04/16 Not Detected INFLUENZA B PCR Final 07/04/16 Not Detected METAPNEUMOVIRUS PCR Final 07/04/16 Organism 1 HUMAN METAPNEUMOVIRUS METAPNEUMOVIRUS PCR DETECTED TIME CALLED: 925 DATE CALLED: 07/04/16 FLOOR/DOCTOR: TAHIR/MALLY Reyes CALLED BY: VS RHINOVIRUS OR ENTEROVIRUS PCR Final 07/04/16 Not Detected PARAINFLUENZA 1 PCR Final 07/04/16 Not Detected . X-Rays, CTs and MRIs X-RAY CHEST ONE VIEW, PORTABLE IMPRESSION: Persistent minimal costophrenic angle blunting without gross consolidation. Dictated by: Estelle Lowe M.D. on 07/03/2016 at 17:43 Approved by: Estelle Lowe M.D. on 07/03/2016 at 17:44 PROCEDURE: X-RAY PELVIS W/LAT HIP (LT) ([id number]) IMPRESSION: No fracture or dislocation. If clinical symptoms persist or clinical suspicion for pathology is high, a repeat examination in 7-10 days, or advanced imaging such as CT or MRI is suggested for further evaluation. Dictated by: Sunny Rico M.D. on 07/04/2016 at 9:48 Approved by: Sunny Rico M.D. on 07/04/2016 at 9:50 . Cardiac Echo Impressions Echocardiogram Report Interpretation Summary The left ventricle is normal in size, wall thickness, and systolic function without any focal wall motion abnormalities. The ejection fraction is estimated to be 60-65%. LVEF has not changed since prior study. The right ventricle grossly appears normal in size with probable normal systolic function. The left atrial size is normal. Right atrial size is normal. The interatrial septum is intact with no evidence for an atrial septal defect. There is no Doppler evidence for an interatrial shunt. The aortic root is normal size. There is moderate to severe luminal irregularity and echogenicity in the abdominal aorta, suggestive of aortic atherosclerotic disease. No obvious source for cardioembolic CVA/TIA. Reading Physician:PM Assessment & Plan Renan Campbell is a 71-year-old male with a past medical history significant for hypertension, alcohol and tobacco use disorder, psoriasis, possible cirrhosis and COPD who was admitted for acute respiratory failure and generalized weakness. Hospital day #1. # Acute upper respiratory tract infection, secondary to human metapneumovirus , present on admission. Active. - Patient is a chronic smoker and presented with URI symptoms x 10 days. - Received Azithromycin 500 mg IV 1 and Ceftriaxone 1 g IV 1, as well as, Methylprednisolone 125 mg IV 1 in the ER. Continue azithromycin and ceftriaxone. Added vancomycin dosing per pharmacist. - Prednisone 60 mg started. However, patient is immunocompromised due to TNF alpha inhibitor for psoriasis. Discontinued glucocorticoid at this time. - Chest x-ray showed persistent costophrenic angle blunting without gross consolidation, as above. - Respiratory viral PCR positive for human metapneumovirus, as above. - Continue supplemental oxygen as needed. # Acute bacteremia, present on admission. Active. - Blood cultures are positive Strep. pneumoniae - Continue Azithromycin, Ceftriaxone and Vancomycin. - MRSA screen pending. - ID consulted. # Acute hypoxemic respiratory failure, present on admission. Active. - SpO2 88% on RA on admission. - O2 2L NC, O2 goal 90-92%. - AccuNeb every 2 hours as needed for shortness of breath and DuoNeb 4 times a day while awake. - Continue to monitor vital signs closely. # Acute left lower extremity cellulitis, present on admission. Active. - Continue antibiotics as above . - MRSA screen pending. - Patient recently had a TNF alpha inhibitor injection. We DC this medication during acute infection. 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 # Acute left hip pain after recent ground-level fall, present on admission. Active. - Likely due to recent fall 2 days ago with history of multiple falls. This has been worked up by multiple specialists without an active diagnosis. - CT brain w/o con in 2014 showed chronic microvascular ischemic changes. - MRI/MRA Head & Neck done in December of 2015 showed no evidence of infarction, central atrophy and small vessel ischemic changes, normal intracranial circulation, mild up to 50% narrowing at the origin of the left vertebral artery , moderate to severe greater than 70% narrowing at the origin of the right vertebral artery. - PT and OT evaluation - Very tender lateral left hip to palpation with decreased internal rotation. - Hip/pelvis x-ray showed no fracture or dislocation. - Tramadol 50 mg for pain control. - Continue to monitor. # Elevated transaminase level, chronic, present on admission. Active. - AST & ALT have been previously elevated, however, doubled since 2014; AST & ALT are 305 & 112 on admission, consistent with EtOH use. Continue to increase, 414 and 245 today. - Patient previously denied any hx of blood transfusions, tattoos, IV drug use or hx of hepatitis - Hepatitis panel negative in 2014. - US abdomen in September 2014 revealed diffusely heterogeneous liver echotexture w/ o sonographic explanation for elevated transaminase levels. - Ammonia slightly elevated continue to monitor for signs of hepatic encephalopathy. - Recommend outpatient work up with PCP # Alcohol use disorder, chronic, present on admission. - History of daily alcohol use for years. - Ativan 0.5 mg IV every 6 hours as needed for anxiety. - Echocardiogram came back normal. # Thrombocytopenia, unknown acuity, present on admission. Active. - Platelet count 122 on admission, 103 today. - INR normal at 0.95. # Severe sepsis, present on admission. Resolved. - SIRS criteria met including: Tachypnea (respiratory rate 34), probable tachycardia however on a beta pam, likely sources include left lower extremity cellulitis and pulmonary. - Early goal-directed therapy met including: IV fluid resuscitation and broad- spectrum antibiotics. # Acute anion gap metabolic acidosis, present on admission. Resolved. - Initial lactic acid of 3.2. Resolved with fluid resuscitation. - DC NS IVF. Chronic problems: Chronic kidney disease stage II, present on admission. Stable. - Cr of 1.42 on admission, compared to 1.47 as of September 2014 - Avoid nephrotoxic meds Chronic problems: Hypertension, chronic. Stable. - Continue home medications. PRN antiemetics: Zofran and Maalox. PRN bowel regimen: Senna and MiraLAX. PRN analgesics: Tylenol. Disposition: Patient will discharge home depending on clinical course in several days. . Pain Evaluation: Adequate Pain Control GI Prophylaxis: H2 pam, Not indicated VTE Prophylaxis: Sub-Q Heparin (Unfractionated) Resuscitation Status: CPR: Attempt Resuscitation Attending Statement The patient was seen and examined together with Dr. Avalos on 07-05-16 and I agree with the history, exam and plan as outlined in the note above. copies to: Piotr Samano MD,Rosario Felipe DO Jul 05, 2016 20:23 Warren Rhodes MD Jul 06, 2016 08:42
[2016-07-06] VITALS (10 sets, daily range): BP systolic 124–152; BP diastolic 80–90; PULSE 58–74; RESP 18–20; O2SAT 91–95
[2016-07-06] MEDS: Heparin 5,000 Unit/mL Inj SUBQ SCH ×3 (00:02→16:26)
--- NOTE | 2016-07-06 01:06 | CONS ---
[address] [address] CONSULTATION REPORT PATIENT: JUDY BECKER : 1945 MR#: [id number] ADMIT: 07/03/2016 JOB ID: [id number] DATE OF SERVICE: 07/06/[address] Steele for this timely consult. REASON FOR CONSULTATION: Pneumococcal sepsis. HISTORY OF PRESENT ILLNESS: The patient is a 71-year-old gentleman in rather fragile overall health, though he is able to live at home with his in the local area. He reports that his exercise tolerance is somewhat limited by COPD and he continues to be an ongoing cigarette smoker. In addition to that, the patient has psoriasis and has received injectable bio active drugs. He reports that his vibrator operator, Princess Davis, just switched him to a new injectable psoriasis drug, but he does not know the name. I cannot locate it yet in the chart. The relevant past medical history begins about 10 days ago when the patient and his both developed what he called severe colds. These were characterized by some fever, chills, sweats, sore throat, sneezing and dry cough. His cough gradually became productive and even have some of his symptoms including a sore throat gradually resolved. He developed worsening cough and shortness of breath. This was a manageable problem it seemed like until the , two days ago, when he was brought to the ED complaining of increasing weakness. The patient fell a couple of times during that day. He reports that he suffers from near syncope but never completely loses consciousness during these falls. They have been occurring for about a year but have been more frequent lately and the two that occurred on the were what led him to this admission. During these falls, he does not lose consciousness nor does he experience vertigo but rather a sense of almost blacking out and a loss of the sense of where his feet are positioned. After his most significant fall on the , his had him brought to the emergency department where he was admitted with relative hypoxia, elevated lactic acidosis, elevated liver function tests and possible TIA or stroke. Because of the lactic acidosis and other worrisome features of his lab studies including a very left-shifted though normal white count, blood cultures were drawn and urine antigens were obtained. These blood cultures have shown strep pneumoniae in his blood and his urine was also positive for the strep pneumonia antigen confirming the diagnosis of pneumococcal sepsis. The patient reports that in the days leading up to admission, he actually had little in the way of fever, chills and sweats though it had been a more prominent feature earlier in his respiratory tract infection about 10 days ago. He notes that his cough though has gradually become more thick with a whitish thick sputum. He notes that he has had somewhat more dyspnea with exertion lately and more of these falling episodes. He denies any significant sore throat and denies any fullness or pain in his ears. He does not have any particular sinus symptoms. There has been no significant GI symptomatology. PAST MEDICAL HISTORY: 1. Alcohol abuse. 2. Cirrhosis confirmed by ultrasound two years ago. 3. Psoriasis requiring immunosuppressive agents. 4. Hypertension. 5. COPD. 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 Lives in the [facility]. He reports that he has been a lifelong smoker, and is trying to quit but still smoking about a pack a day. Additionally, he reports a lifelong 50 year history of heavy alcohol use, now cutting back to two or three glasses of wine a day. He has not traveled widely and has not lived outside the [facility]. He lives in the [facility] with his . FAMILY HISTORY: Negative for tuberculosis in his parents and siblings. REVIEW OF SYSTEMS: Was done. The patient says today he has no significant headache. No visual complaints. No sore throat. No sneezing or rhinorrhea. No fullness of the ears. No sinus complaint. He denies any stiff neck. He has a cough which is productive of some thick sputum as well as chronic shortness of breath which is worse than his baseline. He has no substernal chest pain. No nausea, vomiting, diarrhea, or abdominal pain. No dysuria, urgency, or frequency. No swelling of the joints. He does have some pain in his left lower extremity which started after his recent fall. He also notes that his psoriasis is a continuing problem especially around his left foot and ankle. Remainder of the review of systems is negative. PHYSICAL EXAMINATION: Reveals an afebrile gentleman, temperature 36.6, pulse 66, respiratory rate 18, blood pressure 116/73, saturating well on 2 L. Earlier, he was hypoxic on room air with an FiO2 of 88% more shortness of breath. His mental status seems clear. His speech is perhaps a little bit slow but well organized and appropriate to the questions asked. He is clearly oriented x3. His head is without trauma. No temporal wasting. No conjunctival hemorrhage or scleral icterus. Oral cavity without thrush, pharyngitis, or hairy leukoplakia. His neck is quite supple and without cervical adenopathy or JVD. His lungs are really quite remarkable in that there is very little air flow on either side when the patient is auscultated sitting up from the posterior approach. There are some scattered wheezes and rhonchi but the main thing I note is the absence of good air flow on either side. Cardiac tones: Regular rate and rhythm without murmur. Abdomen is soft and without appreciable organomegaly or ascites. Does not have a Galvez. Does not have suprapubic fullness. Examination of the joints reveals no evidence of synovitis. The patient does not have any peripheral edema. He does have venous stasis changes in both lower extremities and on the left leg the ankle and foot are almost completely enveloped in psoriasiform lesions. This does not appear to be superinfected in any way. Neurologically, the patient has reasonable strength in all four extremities. There is no wasting of the musculature or obvious neuropathy. LABORATORY STUDIES: Include white count 7500 on admission, now 6100. Creatinine 0.8. LFTs notable for AST 311, ALT 211, alk phos 164, albumin 2.9. Procalcitonin 6.76. Note that his LFTs on admission were worse in that he had an AST of 305 and an ALT of 105. Also note that the patient has had previous serum evaluation for possible cirrhosis and was found to have low-level liver necro inflammatory activity. A liver fibrosis score appeared to be negative at that time. This testing was done back in September 2014. Other studies of interest include HIV which was done during this admission and is negative, streptozyme negative during this admission, and a QuantiFERON Gold done two years ago that was negative. Micro studies from this admission include 4/4 bottles growing strep pneumoniae. We are awaiting the susceptibilities. Urine antigen was also positive for strep pneumoniae. Respiratory multiplex PCR positive for human metapneumovirus. IMAGING: Includes a chest x-ray done during this admission which shows blunting of the costophrenic angle which is old and there is no evidence for acute consolidation. IMPRESSION: This is an unfortunate gentleman with what seems to be fairly advanced chronic obstructive pulmonary disease and alcoholic liver disease who is admitted with weakness and falls. His laboratory work is certainly consistent with an alcoholic hepatitis perhaps superimposed on some degree of cirrhosis, but the ultrasound from 2015 that showed probable cirrhosis in the blood test done in 2015 are not congruent in their view of whether or not he has cirrhosis but, in any event, he does have alcoholic liver disease, chronic obstructive pulmonary disease and psoriasis for which he has been receiving immunosuppressive agents. He presented three days ago with recurrent falls and was found to have a left-shifted but normal white count with lactic acidosis leading to blood cultures which have somewhat surprisingly all grown strep pneumoniae. This bacteremic strep pneumoniae infection is certainly real and very worrisome in terms of its need for comprehensive management in this very immunosuppressed host. The source of the bacteremia is a little bit unclear as his chest x-ray does not show any new focal obvious infiltrate. His lungs are very difficult to auscultate and one can certainly not localize any site of pneumonia based on that as his breath sounds are so poor bilaterally. Pneumococcal bacteremias can also rise from otitis media or sinusitis though we see no clinical evidence for that. Likewise, pneumococcus can cause an SBP which can be bacteremic though it does not appear by physical that he has much, if any, ascites. Likewise, the pneumococcus can be a cause of primary endocarditis, but he has no murmur or peripheral stigmata to suggest that. At this point, my conclusion is it likely the pneumococcus arose from a respiratory site and we will treat it accordingly unless we find evidence for endocarditis, SBP or some other as of yet unsuspected process. RECOMMENDATIONS: 1. We can discontinue the vancomycin he is receiving as it is hazardous in a patient who may have cirrhosis to use potentially nephrotoxic agents and I see no indication for it. 2. Will switch his azithromycin from IV to oral. Recent data suggests that the addition of azithromycin to ceftriaxone improves the mortality in bacteremic pneumococcal sepsis. 3. Will continue with the ceftriaxone which is the main drug in this situation. I will go ahead and increase the dose to 2 g a day, however, rather than one. 4. ID will continue to closely follow this complex patient with you. [facility]
--- NOTE | 2016-07-06 03:02 | NUR ---
Pain/O2 sats Pt complains of severe back pain 01/23. Pt states that he could hardly move himself due to pain. MD was notified and ordered Tramadol 50mg once. Noted desaturating from 90's to 87 if tried to wean from 1.5LPM o2. Pt is currently on 1LPM NC and has been saturating 91-93%. Will continue to monitor.
[2016-07-06] MEDS ORDERED: Vancomycin Serum Trough XX ONE (04:30)
--- NOTE | 2016-07-06 05:32 | NUR ---
Back Pain Pt had an episode of back pain 01/23. Provide ice pack and notified MD. Doctor ordered Tramadol 50mg once for pain. Pt has no complains since. Denies chest pain, mild sob noted upon trying to titrate the pt to ra but still can't tolerate and has been saturating down to 87%. HS meds administered as scheduled, VSS, and has been afebrile overnight. Hourly rounding done, pt has slept most of the night.
[2016-07-06] MEDS: Albuterol-Ipratropium 3 mL Inhalation Solution NEB SCH ×3 (06:00→20:59)
[2016-07-06 07:38] LABS: BASOPHILS % (AUTO) 0 % (0-3); EOSINOPHILS % (AUTO) 0 % (0-5); MONOCYTES % (AUTO) 14.3 % (4-12); Mean Corpuscular Hemoglobin 32.9 pg (27.0-35.0); Mean Corpuscular Volume 98.8 fL (81-100); NEUTROPHILS % (AUTO) 75.3 % (40-74); Platelet Count 111 bil/L (150-400)
[2016-07-06] MEDS ORDERED: Ipratropium 0.02% 0.5 mg/2.5 mL Inhalation Solution NEB ONE (08:58)
[2016-07-06] MEDS ORDERED: KCl 40 mEq/D5W 500 mL 40 MEQ in IV Premix 500 EACH IV ONE (09:00)
[2016-07-06] MEDS: HYDROcodone-APAP 5-325 mg Tablet PO PRN ×2 (13:40→20:25)
--- NOTE | 2016-07-06 14:22 | DRSVH ---
PROCEDURE: X-RAY LUMBAR SPINE, 2 OR 3 VIEW INDICATIONS: Recent fall, increasing back pain TECHNIQUE: 3 views of the lumbar spine were acquired. COMPARISON: None. FINDINGS: Bones: 5 [id number] vertebrae are present. There is normal bony alignment. No vertebral body c ompression fractures. No suspicious bony lesions. Loss of lordosis. Trace multilevel retrolisthesi s. Multilevel disc degeneration, most notably in mild to moderate at L5-S1 level where there also is mild neural foraminal narrowing. Soft tissues: Overlying bowel gas pattern is normal. No suspicious soft tissue calcifications. Vas cular calcifications indicate atherosclerosis. IMPRESSION: Mild multilevel degenerative change. Dictated by: Brice CARRANZA Interpreted: Estelle Lowe MD on 07/06/2016 at 14:20 Transcribed by: SHAAN on 07/06/2016 at 14:22 Approved by: Estelle Lowe M.D. on 07/06/2016 at 16:58
--- NOTE | 2016-07-06 15:48 | NUR ---
Shift note Pleasant pt, able to make needs known. IV K+ infusing. in for visit. [employer] AND [employer] TESTER discussing home health with family. Pt on via [facility] d/t desating to 88% on RA. Pt refused to work with OT. Bed in low position, upper rails up, call light in reach.
--- NOTE | 2016-07-06 15:51 | NUR ---
Evaluation completed. Please go to "Notes" then click on "Assessments and Notes" (bottom left corner of screen). Then select appropriate discipline tab on top of screen.
--- NOTE | 2016-07-06 16:59 | DRSVH ---
PROCEDURE: MRI PELVIS WITHOUT CONTRAST ([id number]) INDICATIONS: recent fall, left hip pain and increasing back pain TECHNIQUE: Noncontrast coronal and axial T1 spin echo and STIR through the bony pelvis. COMPARISON: Pelvis and left hip 07/04/2016; lumbar spine 07/06/2016 FINDINGS: Image quality: Excellent. Bones: Bone marrow of the pelvic ring, sacrum, and proximal femurs show normal signal throughout. N o intraosseous lesions or fractures identified. The visualized lower lumbar spine appears normally a ligned. Tendons: The gluteus medius and minimus tendons appear intact, without associated muscle atrophy. T he nearby proximal iliotibial band also appears intact. The iliopsoas tendon appears intact, without adjacent bursal fluid collections or evidence for impingement syndrome. The origin of the hamstring tendon is intact at the ischial tuberosity, as well as the associated sacrotuberous ligament. The s traight and reflected heads of the rectus femoris muscle origin appear intact, as well as the conjoin t tendon. Soft tissues: Visualized muscles demonstrate normal bulk and internal signal. No joint effusions. T here is a small amount of free pelvic fluid and fluid within the paracolic recesses, left greater cristóbal n right. Bladder wall thickness is normal. Genitourinary structures and bowel loops appear normal w here visualized. IMPRESSION: 1. Negative for occult fracture. 2. No joint effusion, musculotendinous or ligamentous tear. 3. Small amount of free fluid within the pelvis is indeterminate. If splenic or other organ injury is suspected clinically, CT abdomen and pelvis is suggested. Dictated by: Emil Hinton M.D. on 07/06/2016 at 16:51 Approved by: Emil Hinton M.D. on 07/06/2016 at 16:57
--- NOTE | 2016-07-06 17:45 | NUR ---
Social Work Continued Discharge Planning: SW spoke to patient and spouse at bedside to discuss discharge plan. SW met with patient and discussed therapy recommendations for HHC services and walker. Choice list provided to patient previously upon SW discussion with patient yesterday. Patient was in agreement to HHC services via [facility] and a referral was sent on patient behalf. Upon speaking with patient and , states not wanting HHC services at this time and denied need for care services. Patient and to discuss further with SW pending clinical course. Patient states she preferes to continue outpt PT services with patient upon discharge. SW discussed benefits of services, denied need at this time. MD aware. PLAN: Home with . Denied need for HHC at this time. Access and face to face previously provided to [facility]. SW to cancel request Lazaro ALICIA
--- NOTE | 2016-07-06 17:49 | PCM.PNMED ---
Subjective Date of Service Jul 06, 2016 Subjective Renan Campbell is a 71-year-old male with a past medical history significant for hypertension, alcohol and tobacco use disorder, psoriasis, possible cirrhosis and COPD who was admitted for acute respiratory failure and generalized weakness. Hospital day 4. No acute events overnight. The patient is in moderate distress due to back and he pain. Stated he could not sleep last night due to pain. Tramadol is not helping. Denies headache, shortness of breath, chest pain, abdominal pain, nausea, vomiting, fever, chills, dysuria, diarrhea or constipation. Not ambulating and requires assistance for transfers. His is by his bedside. Exam Vital Signs Vital Sign - Last Date Time Temp Pulse Resp B/P Pulse Ox O2 Delivery O2 Flow Rate FiO2 07/06/16 13:16 36.5 67 19 124/80 92 Nasal Cannula 1.00 Intake and Output 07/05/16 07/05/16 07/06/16 Cumulative From/Thru 15:00 23:00 07:00 07/03/16 16:54 - 07/06/16 06:49 Intake Total 200 ml 1968 ml 340 ml 5865 ml Output Total 950 ml 1100 ml 1150 ml 4775 ml Balance -750 ml 868 ml -810 ml 1090 ml Intake Oral 200 ml 636 ml 200 ml 1908 ml IV Total 1332 ml 140 ml 3957 ml Output Urine Total 950 ml 1100 ml 1150 ml 4775 ml # Voids 1 1 # Bowel Movements 0 0 Exam General: Elderly gentleman in no acute distress, cachectic HEENT: NCAT, PERRL, anicteric sclerae Neck: Supple, no JVD, no lymphadenopathy Cardiovascular: RRR, no m/r/g Lungs: Mild rhonchi on auscultation nl, normal respiratory effort with no use of accessory muscles. Abdomen: Soft, nontender Extremities: Pinpoint tenderness over left posterior hip. Skin: Psoriatic rash on left ankle with mild erythema and warmth. IVs and Medications Medications Reviewed: Medications were reviewed in detail Lab and Diagnostics Result Diagram: 07/06/1670907/06/16709 Microbiology Microbiology CHARITY STREP PNEUMONIAE AG URINE Final 07/05/16-1015 STREP PNEUMO AG POSITIVE Tests performed directly on clinical specimens are intended for screening purposes only and should augment, not replace, culture procedures Please Note: Streptococcus pneumoniae vaccine may cause false positive results in urine in the 48 hours following injection. Hence, it is recommended that the Alere Strep pneumoniae Antigen testing not be performed within five days of receiving the S. pneumoniae vaccine Organism 1 STREP PNEUMONIAE ANTIGEN DATE CALLED: 07/05/16 TIME CALLED: 1014 FLOOR/DOCTOR: CALLED PREVIOUSLY Microbiology ADENOVIRUS RESPIRATORY PCR Final 07/04/16-926 Not Detected CORONOVIRUS 229E Final 07/04/16 Not Detected CORONOVIRUS HKU1 Final 07/04/16 Not Detected CORONOVIRUS NL63 Final 07/04/16 Not Detected CORONOVIRUS OC43 Final 07/04/16 Not Detected INFLUENZA A PCR Final 07/04/16 Not Detected INFLUENZA B PCR Final 07/04/16 Not Detected METAPNEUMOVIRUS PCR Final 07/04/16 Organism 1 HUMAN METAPNEUMOVIRUS METAPNEUMOVIRUS PCR DETECTED TIME CALLED: 925 DATE CALLED: 07/04/16 FLOOR/DOCTOR: TAHIR/MALLY Reyes CALLED BY: VS RHINOVIRUS OR ENTEROVIRUS PCR Final 07/04/16 Not Detected PARAINFLUENZA 1 PCR Final 07/04/16 Not Detected . X-Rays, CTs and MRIs X-RAY CHEST ONE VIEW, PORTABLE IMPRESSION: Persistent minimal costophrenic angle blunting without gross consolidation. Dictated by: Estelle Lowe M.D. on 07/03/2016 at 17:43 Approved by: Estelle Lowe M.D. on 07/03/2016 at 17:44 PROCEDURE: X-RAY PELVIS W/LAT HIP (LT) ([id number]) IMPRESSION: No fracture or dislocation. If clinical symptoms persist or clinical suspicion for pathology is high, a repeat examination in 7-10 days, or advanced imaging such as CT or MRI is suggested for further evaluation. Dictated by: Sunny Rico M.D. on 07/04/2016 at 9:48 Approved by: Sunny Rico M.D. on 07/04/2016 at 9:50 . Cardiac Echo Impressions Echocardiogram Report Interpretation Summary The left ventricle is normal in size, wall thickness, and systolic function without any focal wall motion abnormalities. The ejection fraction is estimated to be 60-65%. LVEF has not changed since prior study. The right ventricle grossly appears normal in size with probable normal systolic function. The left atrial size is normal. Right atrial size is normal. The interatrial septum is intact with no evidence for an atrial septal defect. There is no Doppler evidence for an interatrial shunt. The aortic root is normal size. There is moderate to severe luminal irregularity and echogenicity in the abdominal aorta, suggestive of aortic atherosclerotic disease. No obvious source for cardioembolic CVA/TIA. Reading Physician:PM Assessment & Plan #1. Acute upper respiratory tract infection, secondary to human metapneumovirus, poa, active. - Patient is a chronic smoker and presented with URI symptoms x 10 days - Respiratory viral PCR positive for human metapneumovirus - Chest x-ray (07/03) showed persistent costophrenic angle blunting without gross consolidation - Continue supportive treatment with supplemental oxygen as needed and rest #2. Acute bacteremia, poa, active - Bacteremic strep pneumonia infection (+blood cultures, + urine strep. pnem. Ag ) - Unclear source of bacteremia, chest x-ray does not show new infiltrates but we will repeat chest x-ray tomorrow - Per Dr. Coyne, ceftriaxone IV increased to 2 g qd, azithromycin IV switched to PO, vancomycin stopped (MRSA negative) #3. Acute hypoxemic respiratory failure, poa, active - SpO2 88% on RA on admission. - SpO2 92 on 1L O2 NC (SpO2 goal is 90-92%) - AccuNeb q2h PRN sob and DuoNeb 4 times a day while awake - Continue to monitor vital signs closely #4. Acute left hip pain after recent ground-level fall, poa, active - Likely due to recent fall 2 days ago with history of multiple falls - Hip/pelvis x-ray showed no fracture or dislocation - Pelvis MRI ordered - [place] 5/325 q6h PRN for pain - Ongoing PT elevation #5. Acute lower back pain, notpoa, active - Possibly due to compression fracture due to fall a few days ago - We will evaluate with MRI pelvis - [place] 5/325 q6h PRN for pain and lorazepam 0.5 mg IV q6h PRN #6. Elevated transaminase level, chronic, poa, improving - AST & ALT today to 22 and 180 (414 and 245 yesterday) - No h/o blood transfusions, tattoos, IV drug use or hepatitis (hepatitis panel negative in 2015) - H/o chronic alcohol use for years - Ammonia slightly elevated continue to monitor for signs of hepatic encephalopathy - Recommend outpatient work up with PCP #7. 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 Acute sepsis, poa, resolved - SIRS criteria met including: Tachypnea (respiratory rate 34), probable tachycardia however on a beta pam, likely sources include left lower extremity cellulitis and pulmonary. - Early goal-directed therapy met including: IV fluid resuscitation and broad- spectrum antibiotics Chronic problems: Chronic kidney disease stage II, present on admission. Stable. - Cr of 1.42 on admission, compared to 1.47 as of September 2014 - Avoid nephrotoxic meds Hypertension, chronic. Stable. - Continue home medications. PRN antiemetics: Zofran and Maalox. PRN bowel regimen: Senna and MiraLAX. PRN analgesics: Tylenol. Disposition: Patient will discharge home depending on clinical course in several days. . Pain Evaluation: Adequate Pain Control GI Prophylaxis: H2 pam, Not indicated VTE Prophylaxis: Sub-Q Heparin (Unfractionated) VTE Mechanical Devices: Venous Foot Pump Resuscitation Status: CPR: Attempt Resuscitation Attending Statement The patient was seen and examined together with Dr. Avalos on 07-06-16 and I agree with the history, exam and plan as outlined in the note above. Patient is on prn IV Ativan for anxiety related to sig ETOH use. Patient will be monitored for ETOH withdrawal. Rosario Avalos DO Jul 06, 2016 17:49 Warren Rhodes MD Jul 07, 2016 09:25
--- NOTE | 2016-07-06 18:11 | PROG NOTE ---
[address] [address] PROGRESS NOTE PATIENT: JUDY BECKER : 1945 MR#: [id number] ADMIT: 07/03/2016 JOB ID: [id number] DATE: 07/06/2016 INFECTIOUS DISEASE FOLLOWUP NOTE: REASON FOR FOLLOWUP: Human metapneumovirus respiratory tract infection with pneumococcal bacteremia in a patient with underlying lung and liver disease. INTERVAL HISTORY: Overnight the patient tells me he has been doing fine. He states that he has no fevers, no chills, no sweats, minimal cough, and no shortness of breath. He denies abdominal pain, nausea, vomiting, and especially right upper quadrant or liver location type abdominal pain. He is voiding normally. PHYSICAL EXAMINATION: Reveals a comfortable gentleman in no acute distress. His temperature is 36.5, pulse 67, respiratory rate 19, blood pressure 124/80, and he is saturating well on 1 L. He is alert and oriented. Oral cavity with no thrush. No herpetic lesions. Lungs essentially clear to auscultation, to my surprise. Cardiac tones without significant murmur. Abdomen soft and nontender, without ascites or hepatomegaly. LABORATORIES: Include white count which is 5500, hematocrit 34, platelet count 111. Creatinine 0.84. His ALT, which had been as high as 245, is now down to 180. His AST which had been 414 is now down to 222. His alk phos is 160. His albumin 2.7. His procalcitonin, which had been 6.75, has dropped by half to 3.35. Serologic studies include a strongly positive ASO titer 595. HIV negative. Urine Legionella negative but urine pneumococcal antigen is positive, and of course the patient has multiple blood cultures positive for Strep pneumoniae. This is exquisitely sensitive including penicillin CHARITY less than 0.06. IMPRESSION: This is a bit of an odd case in that we have a gentleman with underlying alcoholic liver disease and chronic obstructive pulmonary disease who is both an ongoing smoker and drinker, who was admitted with basically falls and discovered to have some lactic acidosis which led to the blood cultures which grew pneumococcus. He had had some history of cough and this may be well explained by the human metapneumovirus as he notes that both he and his had a recent and ongoing dry cough, but the origin of the pneumococcal sepsis remains a bit unclear. The patient does not seem clinically to have pneumonia, nor does he have sinusitis or otitis media that I can tell. Peritonitis would be very unusual and the patient does not have gross ascitic fluid by any means. He does have considerable back pain related to his falls, but pneumococcus would be a surprising cause of vertebral osteo or spinal epidural abscess. RECOMMENDATIONS: 1. I would continue to follow procalcitonin levels. 2. I would treat the patient's pneumococcal bacteremia for 7-10 days minimum. Right now I would continue with the azithromycin for five days and then quit, which would take us about till the . The beta-lactam agent should continue somewhat longer and while he is here in the hospital I would certainly keep him on ceftriaxone as he does have purported history of PENICILLIN ALLERGY and is obviously tolerating the ceftriaxone. 3. Once the patient is ready for discharge his ceftriaxone could be switched to cefprozil 500 b.i.d. or cefdinir 300 mg b.i.d. to finish his 10 days or so of therapy. 4. As there are no really active ID issues on this patient, ID will go ahead and sign off. 5. Continue azithromycin for a total of five days, which will take us through the , and I have written a stop order for that. 6. Continue some cephalosporin agent through July 14. While in the hospital I would just continue ceftriaxone, but once he is ready to go cefdinir 300 b.i.d. would be an excellent replacement to finish out his course of therapy. 7. I see no contraindication to his discharge in the next day or two if he continues to do well from an overall perspective. MTDD
[2016-07-06] MEDS: cefTRIAXone Inj 2,000 MG in Dextrose 5% Minibag Plus 50 ML IV SCH (20:29)
[2016-07-07] VITALS (8 sets, daily range): BP systolic 131–154; BP diastolic 78–89; PULSE 60–77; RESP 18–20; O2SAT 89–96
--- NOTE | 2016-07-07 01:33 | NUR ---
Patient desatting Pt dessats to low 80's with mask on 3L. Pt is confused and keeps removing mask. Pt is educated to wear mask and why it is necessary. O2 sensor on right ear and patient bumped it off several times, needing reminders to keep it on. Patient refused to lay back in chair upright. Patient sitting forward with hands on knees. Nurse will continue to monitor patient.
[2016-07-07] MEDS: HYDROcodone-APAP 5-325 mg Tablet PO PRN ×3 (05:05→21:23)
[2016-07-07] MEDS: Albuterol-Ipratropium 3 mL Inhalation Solution NEB SCH ×5 (07:16→21:00)
[2016-07-07 07:31] LABS: BASOPHILS % (AUTO) 0.2 % (0-3); EOSINOPHILS % (AUTO) 0.3 % (0-5); MONOCYTES % (AUTO) 14.3 % (4-12); Mean Corpuscular Hemoglobin 33.5 pg (27.0-35.0); Mean Corpuscular Volume 99.7 fL (81-100); NEUTROPHILS % (AUTO) 75.1 % (40-74); Platelet Count 126 bil/L (150-400)
[2016-07-07] MEDS: Heparin 5,000 Unit/mL Inj SUBQ SCH ×3 (08:10→17:22)
--- NOTE | 2016-07-07 15:24 | NUR ---
NUTRITION ASSESSMENT ASSESS: Pt is a 71 yo male admitted w/ hypoxia and COPD exacerbation. Per notes, pt has pneumococcal bacteremia, and experienced a recent fall. Pt experiencing associated back pain. He requires occasional supplemental oxygen. Despite varied PO intake, pt feels his appetite is fine and does not want supplements. PMHX: HTN, GERD, Psoriasis, possible COPD, possible cirrhosis, ETOH and nicotine dependence, possible TIA LABS: Reviewed. BUN 35, Ca 7.9, AST 100, ALT 130, Alb 2.7, Procalcitonin 3.35 MEDS: Reviewed. Vitamin B1, Senna, Lipitor GI: No BM noted pt on Senna. SKIN: Benedicto 22. No other skin issues noted. CURRENT WT: 65 kg (84% of IBW) BMI: 19.4 kg/m2 IBW: 77.6 kg Previous Admit Wt: 74.1 kg (09/30/14) DIET: General PO 25-100% EST. NEEDS: COPD, possible cirrhosis Kcals: 9179-5401 kcal/day (30-35 kcal/kg BW) Pro: 80-100 g/day (1.2-1.5 g/kg BW) NUTRITION DIAGNOSIS: 1.) Increased nutrient needs related to difficulty breathing as evidenced by hypoxia and possible COPD. 2.) Inadequate oral intake related to acute illness as evidenced by variable PO of 25-100%. NUTRITION INTERVENTION: 1.) Will continue w/ current diet plan. No supplements needed at this time. MONITOR / EVAL: PO intake, GI, medications, wt, nutrition status, POC. Will continue to monitor per moderate nutritional risk guidelines. Addendum: 07/07/16 at [address] Auxiliary student documentation reviewed. I agree with above documentation. López Whitley, AKIKO, CD
--- NOTE | 2016-07-07 17:52 | PCM.PNMED ---
Subjective Date of Service Jul 07, 2016 Subjective Renan Campbell is a 71-year-old male with a past medical history significant for hypertension, alcohol and tobacco use disorder, psoriasis, possible cirrhosis and COPD who was admitted for acute respiratory failure and generalized weakness. Hospital day 5. No acute events overnight. The patient continues to endorse back and hip pain. Stated that [place] and Ativan helped with the pain and he was able to get finally some rest. Denies headache, shortness of breath, chest pain, abdominal pain, nausea, vomiting, fever, chills, dysuria, diarrhea or constipation. Continues to work with PT. His is by his bedside. Exam Vital Signs Vital Sign - Last Date Time Temp Pulse Resp B/P Pulse Ox O2 Delivery O2 Flow Rate FiO2 07/07/16 14:13 Room Air 07/07/16 13:53 37.2 72 18 134/83 90 07/07/16 00:53 1.00 Intake and Output 07/06/16 07/06/16 07/07/16 Cumulative From/Thru 15:00 23:00 07:00 07/03/16 16:54 - 07/07/16 05:32 Intake Total 1201 ml 200 ml 7266 ml Output Total 310 ml 600 ml 5685 ml Balance 891 ml -400 ml 1581 ml Intake Oral 640 ml 200 ml 2748 ml IV Total 561 ml 4518 ml Output Urine Total 310 ml 600 ml 5685 ml # Voids 1 # Bowel Movements 0 Exam General: Elderly gentleman in no acute distress, cachectic HEENT: NCAT, PERRL, anicteric sclerae Neck: Supple, no JVD, no lymphadenopathy Cardiovascular: RRR, no m/r/g Lungs: Mild rhonchi on auscultation nl, normal respiratory effort with no use of accessory muscles. Abdomen: Soft, nontender Extremities: Pinpoint tenderness over left posterior hip. Skin: Psoriatic rash with extensive plaque on left ankle with improved erythema Lab and Diagnostics Result Diagram: 07/07/1665407/07/16654 Microbiology Microbiology CHARITY STREP PNEUMONIAE AG URINE Final 07/05/16-1015 STREP PNEUMO AG POSITIVE Tests performed directly on clinical specimens are intended for screening purposes only and should augment, not replace, culture procedures Please Note: Streptococcus pneumoniae vaccine may cause false positive results in urine in the 48 hours following injection. Hence, it is recommended that the Alere Strep pneumoniae Antigen testing not be performed within five days of receiving the S. pneumoniae vaccine Organism 1 STREP PNEUMONIAE ANTIGEN DATE CALLED: 07/05/16 TIME CALLED: 1014 FLOOR/DOCTOR: CALLED PREVIOUSLY Microbiology ADENOVIRUS RESPIRATORY PCR Final 07/04/16 Not Detected CORONOVIRUS 229E Final 07/04/16 Not Detected CORONOVIRUS HKU1 Final 07/04/16 Not Detected CORONOVIRUS NL63 Final 07/04/16 Not Detected CORONOVIRUS OC43 Final 07/04/16 Not Detected INFLUENZA A PCR Final 07/04/16 Not Detected INFLUENZA B PCR Final 07/04/16 Not Detected METAPNEUMOVIRUS PCR Final 07/04/16 Organism 1 HUMAN METAPNEUMOVIRUS METAPNEUMOVIRUS PCR DETECTED TIME CALLED: 925 DATE CALLED: 07/04/16 FLOOR/DOCTOR: TAHIR/MLALY Reyes CALLED BY: VS RHINOVIRUS OR ENTEROVIRUS PCR Final 07/04/16 Not Detected PARAINFLUENZA 1 PCR Final 07/04/16 Not Detected . X-Rays, CTs and MRIs X-RAY CHEST ONE VIEW, PORTABLE IMPRESSION: Persistent minimal costophrenic angle blunting without gross consolidation. Dictated by: Estelle Lowe M.D. on 07/03/2016 at 17:43 Approved by: Estelle Lowe M.D. on 07/03/2016 at 17:44 PROCEDURE: X-RAY PELVIS W/LAT HIP (LT) ([id number]) IMPRESSION: No fracture or dislocation. If clinical symptoms persist or clinical suspicion for pathology is high, a repeat examination in 7-10 days, or advanced imaging such as CT or MRI is suggested for further evaluation. Dictated by: Sunny Rico M.D. on 07/04/2016 at 9:48 Approved by: Sunny Rico M.D. on 07/04/2016 at 9:50 PROCEDURE: MRI PELVIS WITHOUT CONTRAST ([id number]) IMPRESSION: 1. Negative for occult fracture. 2. No joint effusion, musculotendinous or ligamentous tear. 3. Small amount of free fluid within the pelvis is indeterminate. If splenic or other organ injury is suspected clinically, CT abdomen and pelvis is suggested. Dictated by: Emil Hinton M.D. on 07/06/2016 at 16:51 Approved by: Emil Hinton M.D. on 07/06/2016 at 16:57 PROCEDURE: X-RAY LUMBAR SPINE, 2 OR 3 VIEW IMPRESSION: Mild multilevel degenerative change. Dictated by: Brice Hutchins RRA Interpreted: Estelle Lowe MD on 07/06/2016 at 14: 20 Transcribed by: SHAAN on 07/06/2016 at 14:22 Approved by: Estelle Lowe M.D. on 07/06/2016 at 16:58 . Cardiac Echo Impressions Echocardiogram Report Interpretation Summary The left ventricle is normal in size, wall thickness, and systolic function without any focal wall motion abnormalities. The ejection fraction is estimated to be 60-65%. LVEF has not changed since prior study. The right ventricle grossly appears normal in size with probable normal systolic function. The left atrial size is normal. Right atrial size is normal. The interatrial septum is intact with no evidence for an atrial septal defect. There is no Doppler evidence for an interatrial shunt. The aortic root is normal size. There is moderate to severe luminal irregularity and echogenicity in the abdominal aorta, suggestive of aortic atherosclerotic disease. No obvious source for cardioembolic CVA/TIA. Reading Physician:PM Assessment & Plan #1. Acute upper respiratory tract infection, secondary to human metapneumovirus, poa, active. - Patient is a chronic smoker and presented with URI symptoms x 10 days - Respiratory viral PCR positive for human metapneumovirus - Chest x-ray (07/03) showed persistent costophrenic angle blunting without gross consolidation - Continue supportive treatment with supplemental oxygen as needed and rest #2. Acute bacteremia, poa, active - Bacteremic strep pneumonia infection (+blood cultures, + urine strep. pnem. Ag ) - Unclear source of bacteremia, chest x-ray does not show new infiltrates but we will repeat chest x-ray tomorrow - Continue Ceftriaxone IV 2 g qd, azithromycin stopped, (pt has been on it for 4 days) #3. Acute hypoxemic respiratory failure, poa, improving - SpO2 88% on room air on admission. - Currently SpO2 90 % on room air - AccuNeb q2h PRN sob and DuoNeb 4 times a day while awake - Continue to monitor vital signs closely #4. Acute left hip pain after recent ground-level fall, poa, active - Likely due to recent fall 2 days ago with history of multiple falls - Hip/pelvis x-ray showed no fracture or dislocation. - Pelvis MRI negative for occult fracture, joint effusion, ligamentous tear. Small amount of free fluid in pelvis - [place] 5/325 q6h PRN for pain - Ongoing PT elevation #5. Acute lower back pain, notpoa, active - Possibly due to his recent fall at home a few days ago - X-ray lumbar showed degenerative changes present at L5-S1 - Continue [place] 5/325 q6h PRN for pain and lorazepam 0.5 mg IV q6h PRN #6. Elevated transaminase level, chronic, poa, improving - AST & ALT today to 100 and 130 (222 and 180 yesterday) - No h/o blood transfusions, tattoos, IV drug use or hepatitis (hepatitis panel negative in 2014) - H/o chronic alcohol use for years - Ammonia slightly elevated continue to monitor for signs of hepatic encephalopathy - Recommend outpatient work up with PCP #7. 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 Acute sepsis, poa, resolved - SIRS criteria met including: Tachypnea (respiratory rate 34), probable tachycardia however on a beta pam, likely sources include left lower extremity cellulitis and pulmonary. - Early goal-directed therapy met including: IV fluid resuscitation and broad- spectrum antibiotics Chronic problems: #10. Hypertension, chronic. Stable. - Continue home medications. PRN antiemetics: Zofran and Maalox. PRN bowel regimen: Senna and MiraLAX. PRN analgesics: Tylenol. High risk medication: Lorazepam IV Disposition: Home in 1-2 days depending on clinical course . Pain Evaluation: Adequate Pain Control GI Prophylaxis: H2 pam, Not indicated VTE Prophylaxis: Sub-Q Heparin (Unfractionated) VTE Mechanical Devices: Venous Foot Pump Resuscitation Status: CPR: Attempt Resuscitation Attending Statement The patient was seen and examined together with Dr. Avalos on 07-07-16 and I agree with the history, exam and plan as outlined in the note above. Rosario Avalos DO Jul 07, 2016 17:52 Warren Rhodes MD Jul 08, 2016 13:33
--- NOTE | 2016-07-07 19:30 | NUR ---
Activity/02 Pt sitting up EOB or in chair for all meals. Amb to BR with SBA/cane and tolerated well. Pt has been on RA all shift, denies any SOB and tolerating activity well. Currently resting in bed which is in lowest, locked position and call light in reach.
[2016-07-07] MEDS: cefTRIAXone Inj 2,000 MG in Dextrose 5% Minibag Plus 50 ML IV SCH (20:53)
[2016-07-07] MEDS: Alum-Mag Hydrox-Simeth 30 mL Suspension PO SCH (21:27)
[2016-07-08] VITALS (10 sets, daily range): BP systolic 142–172; BP diastolic 82–93; PULSE 60–96; RESP 16–18; O2SAT 90–96
[2016-07-08] MEDS: Heparin 5,000 Unit/mL Inj SUBQ SCH ×3 (00:30→16:58)
[2016-07-08] MEDS: HYDROcodone-APAP 5-325 mg Tablet PO PRN ×3 (04:47→21:00)
--- NOTE | 2016-07-08 05:39 | NUR ---
PAIN Pt complained of hip pain "9" out of 10. Administered [place] 1 tablet, effective. Pt resting with eyes closed. No s/sx of pain or discomfort. Call light within reach, using appropriately. Pleasant and cooperative with care.
[2016-07-08 07:09] LABS: BASOPHILS % (AUTO) 0.1 % (0-3); EOSINOPHILS % (AUTO) 0.7 % (0-5); MONOCYTES % (AUTO) 11.5 % (4-12); Mean Corpuscular Hemoglobin 33.2 pg (27.0-35.0); Mean Corpuscular Volume 99.7 fL (81-100); NEUTROPHILS % (AUTO) 78.7 % (40-74); Platelet Count 165 bil/L (150-400)
[2016-07-08] MEDS: Albuterol-Ipratropium 3 mL Inhalation Solution NEB SCH ×5 (08:15→20:20)
[2016-07-08] MEDS: Alum-Mag Hydrox-Simeth 30 mL Suspension PO SCH ×2 (08:45→20:30)
--- NOTE | 2016-07-08 15:32 | PCM.PNMED ---
Subjective Date of Service Jul 08, 2016 Subjective Patient is a 71-year-old male with past medical history of hypertension, alcohol and tobacco use, psoriasis, possible cirrhosis and COPD who was admitted for acute respiratory failure and generalized weakness. Hospital day # 6. No acute overnight events. Patient states he is feeling better. However he continues to endorse the back and keep pain. He states his pain is controlled adequately with [place] by mouth. Denies chest pain, shortness of breath, cough, nausea, vomiting. Continues to work with PT. Exam Vital Signs Vital Sign - Last Date Time Temp Pulse Resp B/P Pulse Ox O2 Delivery O2 Flow Rate FiO2 07/08/16 14:26 Room Air 07/08/16 12:40 96 18 90 07/08/16 09:42 36.4 142/84 07/07/16 00:53 1.00 Intake and Output 07/07/16 07/07/16 07/08/16 Cumulative From/Thru 15:00 23:00 07:00 07/03/16 16:54 - 07/07/16 23:01 Intake Total 1368 ml 8634 ml Output Total 375 ml 6060 ml Balance 993 ml 2574 ml Intake Oral 1175 ml 3923 ml IV Total 193 ml 4711 ml Output Urine Total 375 ml 6060 ml # Voids 1 2 # Bowel Movements 0 0 Exam General: Elderly gentleman in no acute distress, cachectic HEENT: NCAT, PERRL, anicteric sclerae Neck: Supple, no JVD, no lymphadenopathy Cardiovascular: RRR, no m/r/g Lungs: Mild rhonchi on auscultation nl, normal respiratory effort with no use of accessory muscles. Abdomen: Soft, nontender Extremities: Pinpoint tenderness over left posterior hip. Skin: Psoriatic rash with extensive plaque on left ankle with improved erythema IVs and Medications Medications Reviewed: Medications were reviewed in detail Lab and Diagnostics Result Diagram: 07/08/1665407/08/16654 Microbiology Microbiology CHARITY STREP PNEUMONIAE AG URINE Final 07/05/16-1015 STREP PNEUMO AG POSITIVE Tests performed directly on clinical specimens are intended for screening purposes only and should augment, not replace, culture procedures Please Note: Streptococcus pneumoniae vaccine may cause false positive results in urine in the 48 hours following injection. Hence, it is recommended that the Alere Strep pneumoniae Antigen testing not be performed within five days of receiving the S. pneumoniae vaccine Organism 1 STREP PNEUMONIAE ANTIGEN DATE CALLED: 07/05/16 TIME CALLED: 1014 FLOOR/DOCTOR: CALLED PREVIOUSLY Microbiology ADENOVIRUS RESPIRATORY PCR Final 07/04/16-926 Not Detected CORONOVIRUS 229E Final 07/04/16 Not Detected CORONOVIRUS HKU1 Final 07/04/16 Not Detected CORONOVIRUS NL63 Final 07/04/16 Not Detected CORONOVIRUS OC43 Final 07/04/16 Not Detected INFLUENZA A PCR Final 07/04/16 Not Detected INFLUENZA B PCR Final 07/04/16 Not Detected METAPNEUMOVIRUS PCR Final 07/04/16 Organism 1 HUMAN METAPNEUMOVIRUS METAPNEUMOVIRUS PCR DETECTED TIME CALLED: 925 DATE CALLED: 07/04/16 FLOOR/DOCTOR: TAHIR/MALLY Reyes CALLED BY: VS RHINOVIRUS OR ENTEROVIRUS PCR Final 07/04/16-926 Not Detected PARAINFLUENZA 1 PCR Final 07/04/16 Not Detected . X-Rays, CTs and MRIs X-RAY CHEST ONE VIEW, PORTABLE IMPRESSION: Persistent minimal costophrenic angle blunting without gross consolidation. Dictated by: Estelle Lowe M.D. on 07/03/2016 at 17:43 Approved by: Estelle Lowe M.D. on 07/03/2016 at 17:44 PROCEDURE: X-RAY PELVIS W/LAT HIP (LT) ([id number]) IMPRESSION: No fracture or dislocation. If clinical symptoms persist or clinical suspicion for pathology is high, a repeat examination in 7-10 days, or advanced imaging such as CT or MRI is suggested for further evaluation. Dictated by: Sunny Rico M.D. on 07/04/2016 at 9:48 Approved by: Sunny Rico M.D. on 07/04/2016 at 9:50 PROCEDURE: MRI PELVIS WITHOUT CONTRAST ([id number]) IMPRESSION: 1. Negative for occult fracture. 2. No joint effusion, musculotendinous or ligamentous tear. 3. Small amount of free fluid within the pelvis is indeterminate. If splenic or other organ injury is suspected clinically, CT abdomen and pelvis is suggested. Dictated by: Emil Hinton M.D. on 07/06/2016 at 16:51 Approved by: Emil Hinton M.D. on 07/06/2016 at 16:57 PROCEDURE: X-RAY LUMBAR SPINE, 2 OR 3 VIEW IMPRESSION: Mild multilevel degenerative change. Dictated by: Brice Hutchins RRA Interpreted: Estelle Lowe MD on 07/06/2016 at 14: 20 Transcribed by: SHAAN on 07/06/2016 at 14:22 Approved by: Estelle Lowe M.D. on 07/06/2016 at 16:58 . Cardiac Echo Impressions Echocardiogram Report Interpretation Summary The left ventricle is normal in size, wall thickness, and systolic function without any focal wall motion abnormalities. The ejection fraction is estimated to be 60-65%. LVEF has not changed since prior study. The right ventricle grossly appears normal in size with probable normal systolic function. The left atrial size is normal. Right atrial size is normal. The interatrial septum is intact with no evidence for an atrial septal defect. There is no Doppler evidence for an interatrial shunt. The aortic root is normal size. There is moderate to severe luminal irregularity and echogenicity in the abdominal aorta, suggestive of aortic atherosclerotic disease. No obvious source for cardioembolic CVA/TIA. Reading Physician:PM Assessment & Plan #1. Acute upper respiratory tract infection, secondary to human metapneumovirus, poa, active. - Patient is a chronic smoker and presented with URI symptoms x 10 days - Respiratory viral PCR positive for human metapneumovirus - Chest x-ray (07/03) showed persistent costophrenic angle blunting without gross consolidation - Continue supportive treatment with supplemental oxygen as needed and rest #2. Acute bacteremia, poa, active - Bacteremic strep pneumonia infection (+blood cultures, + urine strep. pnem. Ag ) - Unclear source of bacteremia, chest x-ray does not show new infiltrates but we will repeat chest x-ray tomorrow - Continue Ceftriaxone IV 2 g qd - Repeat blood cultures 2 - Procalcitonin and CRP pending #3. Acute hypoxemic respiratory failure, poa, improving - SpO2 88% on room air on admission. - Currently SpO2 90 % on room air - AccuNeb q2h PRN sob and DuoNeb 4 times a day while awake - Continue to monitor vital signs closely #4. Acute left hip pain after recent ground-level fall, poa, active - Likely due to recent fall 2 days ago with history of multiple falls - Hip/pelvis x-ray showed no fracture or dislocation. - Pelvis MRI negative for occult fracture, joint effusion, ligamentous tear. Small amount of free fluid in pelvis - Bradford 5/325 q6h PRN for pain - Ongoing PT evaluation #5. Acute lower back pain, notpoa, active - Possibly due to his recent fall at home a few days ago - X-ray lumbar showed degenerative changes present at L5-S1 - Continue [place] 5/325 q6h PRN for pain and lorazepam 0.5 mg IV q6h PRN #6. Elevated transaminase level, chronic, poa, improving - AST & ALT today to 50 and 87 (100 and 130 yesterday) - No h/o blood transfusions, tattoos, IV drug use or hepatitis (hepatitis panel negative in 2014) - H/o chronic alcohol use for years - Ammonia slightly elevated continue to monitor for signs of hepatic encephalopathy - Recommend outpatient work up with PCP #7. 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 Acute sepsis, poa, resolved - SIRS criteria met including: Tachypnea (respiratory rate 34), probable tachycardia however on a beta pam, likely sources include left lower extremity cellulitis and pulmonary. - Early goal-directed therapy met including: IV fluid resuscitation and broad- spectrum antibiotics Chronic problems: #10. Hypertension, chronic. Stable. - Continue home medications. PRN antiemetics: Zofran and Maalox. PRN bowel regimen: Senna and MiraLAX. PRN analgesics: Tylenol. High risk medication: Lorazepam IV Disposition: Home with home health or senior care facility in 2-3 days depending on clinical course . GI Prophylaxis: H2 pam, Not indicated VTE Prophylaxis: Sub-Q Heparin (Unfractionated) VTE Mechanical Devices: Venous Foot Pump Resuscitation Status: CPR: Attempt Resuscitation Attending Statement The patient was seen and examined together with Dr. Avalos on 07/08/2016 and I agree with the history, exam and plan as outlined in the note above. Rosario Avalos DO Jul 08, 2016 15:32 Eleazar Galindo MD Jul 09, 2016 13:19
--- NOTE | 2016-07-08 18:39 | NUR ---
Mobility/pain Pt up, ambulating better this shift per PT. Pain management has been going well, offering PRN pain medication for continued relief. Pt aware to call if he begins to have some pain. Bed in lowest, locked position and call light in reach.
[2016-07-08] MEDS: cefTRIAXone Inj 2,000 MG in Dextrose 5% Minibag Plus 50 ML IV SCH (21:01)
[2016-07-09] VITALS (10 sets, daily range): BP systolic 110–146; BP diastolic 70–83; PULSE 50–62; RESP 16–18; O2SAT 90–94
[2016-07-09] MEDS: Heparin 5,000 Unit/mL Inj SUBQ SCH ×3 (00:30→18:16)
[2016-07-09] MEDS: HYDROcodone-APAP 5-325 mg Tablet PO PRN ×4 (03:39→21:58)
[2016-07-09 07:12] LABS: BASOPHILS % (AUTO) 0 % (0-3); EOSINOPHILS % (AUTO) 1.2 % (0-5); MONOCYTES % (AUTO) 8.2 % (4-12); Mean Corpuscular Volume 101.4 fL (81-100); NEUTROPHILS % (AUTO) 81.9 % (40-74); Platelet Count 238 bil/L (150-400)
[2016-07-09] MEDS: Albuterol-Ipratropium 3 mL Inhalation Solution NEB SCH ×4 (08:55→20:13)
[2016-07-09] MEDS: Alum-Mag Hydrox-Simeth 30 mL Suspension PO SCH ×2 (09:28→21:05)
--- NOTE | 2016-07-09 14:30 | PCM.PNMED ---
Subjective Date of Service Jul 09, 2016 Subjective Patient is a 71-year-old male with past medical history of hypertension, alcohol and tobacco use, psoriasis, possible cirrhosis and COPD who was admitted for acute respiratory failure and generalized weakness. Hospital day # 7. No acute overnight events. Patient states he is feeling better. His back and knee pain are well controlled. He is doing well with PT. Denies chest pain, shortness of breath, cough, nausea, vomiting. Exam Vital Signs Vital Sign - Last Date Time Temp Pulse Resp B/P Pulse Ox O2 Delivery O2 Flow Rate FiO2 07/09/16 12:38 62 18 94 Room Air 07/09/16 10:36 36.6 141/83 07/07/16 00:53 1.00 Intake and Output 07/08/16 07/08/16 07/09/16 Cumulative From/Thru 15:00 23:00 07:00 07/03/16 16:54 - 07/09/16 06:50 Intake Total 112 ml 400 ml 9146 ml Output Total 450 ml 6510 ml Balance 112 ml -50 ml 2636 ml Intake Oral 400 ml 4323 ml IV Total 112 ml 4823 ml Output Urine Total 450 ml 6510 ml # Voids 2 # Bowel Movements 0 Exam General: Elderly gentleman in no acute distress, cachectic HEENT: NCAT, PERRL, anicteric sclerae Neck: Supple, no JVD, no lymphadenopathy Cardiovascular: RRR, no m/r/g Lungs: Mild rhonchi on auscultation b/l , normal respiratory effort with no use of accessory muscles. Abdomen: Soft, nontender Extremities: mild tenderness over left posterior hip Skin: Psoriatic rash with extensive plaque on left ankle with improved erythema IVs and Medications Medications Reviewed: Medications were reviewed in detail Lab and Diagnostics Result Diagram: 07/09/1663907/09/16639 Microbiology Microbiology CHARITY STREP PNEUMONIAE AG URINE Final 07/05/16-1015 STREP PNEUMO AG POSITIVE Tests performed directly on clinical specimens are intended for screening purposes only and should augment, not replace, culture procedures Please Note: Streptococcus pneumoniae vaccine may cause false positive results in urine in the 48 hours following injection. Hence, it is recommended that the Alere Strep pneumoniae Antigen testing not be performed within five days of receiving the S. pneumoniae vaccine Organism 1 STREP PNEUMONIAE ANTIGEN DATE CALLED: 07/05/16 TIME CALLED: 1014 FLOOR/DOCTOR: CALLED PREVIOUSLY Microbiology ADENOVIRUS RESPIRATORY PCR Final 07/04/16-926 Not Detected CORONOVIRUS 229E Final 07/04/16 Not Detected CORONOVIRUS HKU1 Final 07/04/16 Not Detected CORONOVIRUS NL63 Final 07/04/16 Not Detected CORONOVIRUS OC43 Final 07/04/16 Not Detected INFLUENZA A PCR Final 07/04/16 Not Detected INFLUENZA B PCR Final 07/04/16-926 Not Detected METAPNEUMOVIRUS PCR Final 07/04/16 Organism 1 HUMAN METAPNEUMOVIRUS METAPNEUMOVIRUS PCR DETECTED TIME CALLED: 925 DATE CALLED: 07/04/16 FLOOR/DOCTOR: TAHIR/MALLY Reyes CALLED BY: VS RHINOVIRUS OR ENTEROVIRUS PCR Final 07/04/16 Not Detected PARAINFLUENZA 1 PCR Final 07/04/16 Not Detected . X-Rays, CTs and MRIs X-RAY CHEST ONE VIEW, PORTABLE IMPRESSION: Persistent minimal costophrenic angle blunting without gross consolidation. Dictated by: Estelle Lowe M.D. on 07/03/2016 at 17:43 Approved by: Estelle Lowe M.D. on 07/03/2016 at 17:44 PROCEDURE: X-RAY PELVIS W/LAT HIP (LT) ([id number]) IMPRESSION: No fracture or dislocation. If clinical symptoms persist or clinical suspicion for pathology is high, a repeat examination in 7-10 days, or advanced imaging such as CT or MRI is suggested for further evaluation. Dictated by: Sunny Rico M.D. on 07/04/2016 at 9:48 Approved by: Sunny Rico M.D. on 07/04/2016 at 9:50 PROCEDURE: MRI PELVIS WITHOUT CONTRAST ([id number]) IMPRESSION: 1. Negative for occult fracture. 2. No joint effusion, musculotendinous or ligamentous tear. 3. Small amount of free fluid within the pelvis is indeterminate. If splenic or other organ injury is suspected clinically, CT abdomen and pelvis is suggested. Dictated by: Emil Hinton M.D. on 07/06/2016 at 16:51 Approved by: Emil Hinton M.D. on 07/06/2016 at 16:57 PROCEDURE: X-RAY LUMBAR SPINE, 2 OR 3 VIEW IMPRESSION: Mild multilevel degenerative change. Dictated by: Brice Hutchins RRA Interpreted: Estelle Lowe MD on 07/06/2016 at 14: 20 Transcribed by: SHAAN on 07/06/2016 at 14:22 Approved by: Estelle Lowe M.D. on 07/06/2016 at 16:58 . Cardiac Echo Impressions Echocardiogram Report Interpretation Summary The left ventricle is normal in size, wall thickness, and systolic function without any focal wall motion abnormalities. The ejection fraction is estimated to be 60-65%. LVEF has not changed since prior study. The right ventricle grossly appears normal in size with probable normal systolic function. The left atrial size is normal. Right atrial size is normal. The interatrial septum is intact with no evidence for an atrial septal defect. There is no Doppler evidence for an interatrial shunt. The aortic root is normal size. There is moderate to severe luminal irregularity and echogenicity in the abdominal aorta, suggestive of aortic atherosclerotic disease. No obvious source for cardioembolic CVA/TIA. Reading Physician:PM Assessment & Plan #1. Acute upper respiratory tract infection, secondary to human metapneumovirus, poa, improving. - Patient is a chronic smoker and presented with URI symptoms x 10 days - Respiratory viral PCR positive for human metapneumovirus - Chest x-ray (07/03) showed persistent costophrenic angle blunting without gross consolidation - Continue supportive treatment with supplemental oxygen as needed and rest #2. Acute bacteremia, poa, active - Bacteremic strep pneumonia infection (+blood cultures, + urine strep. pnem. Ag ) - Unclear source of bacteremia, chest x-ray does not show new infiltrates but we will repeat chest x-ray tomorrow - Continue Ceftriaxone IV 2 g qd - Repeat blood cultures 2 pending - Procalcitonin 0.74 (1.78), CRP 11.1 #3. Acute hypoxemic respiratory failure, poa, improving - SpO2 88% on room air on admission. - Currently SpO2 94 % on room air - AccuNeb q2h PRN sob and DuoNeb 4 times a day while awake - Continue to monitor vital signs closely #4. Acute left hip pain after recent ground-level fall, poa, active - Likely due to recent fall 2 days ago with history of multiple falls - Hip/pelvis x-ray showed no fracture or dislocation. - Pelvis MRI negative for occult fracture, joint effusion, ligamentous tear. Small amount of free fluid in pelvis - [place] 5/325 q6h PRN for pain - Ongoing PT evaluation #5. Acute lower back pain, notpoa, active - Possibly due to his recent fall at home a few days ago - X-ray lumbar showed degenerative changes present at L5-S1 - Continue [place] 5/325 q6h PRN for pain and lorazepam 0.5 mg IV q6h PRN #6. Elevated transaminase level, chronic, poa, improving - AST normal, ALT 72 (87), Alk.phosphatase 169 (152) - No h/o blood transfusions, tattoos, IV drug use or hepatitis (hepatitis panel negative in 2014) - H/o chronic alcohol use for years - Ammonia slightly elevated continue to monitor for signs of hepatic encephalopathy - Recommend outpatient work up with PCP #7. 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 Acute sepsis, poa, resolved - SIRS criteria met including: Tachypnea (respiratory rate 34), probable tachycardia however on a beta pam, likely sources include left lower extremity cellulitis and pulmonary. - Early goal-directed therapy met including: IV fluid resuscitation and broad- spectrum antibiotics Chronic problems: #10. Hypertension, chronic. Stable. - Continue home medications. PRN antiemetics: Zofran and Maalox. PRN bowel regimen: Senna and MiraLAX. PRN analgesics: Tylenol. High risk medication: Lorazepam IV Disposition: Home with possible home health tomorrow if blood cultures are negative . GI Prophylaxis: H2 pam, Not indicated VTE Prophylaxis: Sub-Q Heparin (Unfractionated) VTE Mechanical Devices: Venous Foot Pump Resuscitation Status: CPR: Attempt Resuscitation Attending Statement The patient was seen and examined together with Dr. Avalos on 07/09/2016 and I agree with the history, exam and plan as outlined in the note above. Rosario Avalos DO Jul 09, 2016 14:30 Eleazar Galindo MD Jul 10, 2016 13:17
--- NOTE | 2016-07-09 16:14 | NUR ---
Social Work: Readiness for d/c Data: Pt is on day 6 of hospitalization. EMR reviewed. Pt discussed in rounds. MD states pt likely to d/c tomorrow. PT recommending home with outpt PT. No further d/c planning needs anticipated at this time. HOG SCRAPER will continue to follow if needs arise. Assessment: Pt who is independent at baseline. Plan: Pt will d/c home via POV when medically stable. No further d/c planning needs anticipated at this time. HOG SCRAPER will continue to follow if needs arise. RAVIN Wong
--- NOTE | 2016-07-09 18:07 | NUR ---
Pain Patient complains of generalized pain between 4 and 8 all day. He was given Hydrocodone-MPAP and Tramadol to control pain. alternating these 2 appeared to help patient. Complained of more pain after getting up with PT so he was given a pain pill as soon after that as he could get it. Medications appear to be effective for about 3 hour. He is resting comfortably.
[2016-07-09] MEDS: cefTRIAXone Inj 2,000 MG in Dextrose 5% Minibag Plus 50 ML IV SCH (21:05)
[2016-07-10] VITALS (7 sets, daily range): BP systolic 121–151; BP diastolic 67–86; PULSE 53–67; RESP 16–18; O2SAT 90–94
[2016-07-10] MEDS: Heparin 5,000 Unit/mL Inj SUBQ SCH ×2 (00:15→08:54)
[2016-07-10] MEDS: HYDROcodone-APAP 5-325 mg Tablet PO PRN (04:04)
--- NOTE | 2016-07-10 05:00 | NUR ---
Oxygen/Pain patient O2 sats stayed in the low 90s on room air throughout the night. prn pain medication was administered Q6h per patient request of prevention of pain occurrence. tolerated well. will continue to assess for pain and monitor O2 sats.
[2016-07-10 06:45] LABS: BASOPHILS % (AUTO) 0 % (0-3); EOSINOPHILS % (AUTO) 1.1 % (0-5); Mean Corpuscular Hemoglobin 33.6 pg (27.0-35.0); Mean Corpuscular Volume 98.4 fL (81-100); NEUTROPHILS % (AUTO) 79.3 % (40-74); Platelet Count 235 bil/L (150-400)
[2016-07-10] MEDS: Alum-Mag Hydrox-Simeth 30 mL Suspension PO SCH (08:30)
[2016-07-10] MEDS: Albuterol-Ipratropium 3 mL Inhalation Solution NEB SCH ×2 (09:06→11:00)
--- NOTE | 2016-07-10 12:11 | PCM.DIMED ---
Rosario Avalos DO 07/10/16 1211: Discharge Instructions Date of Service Jul 10, 2016 Dates of Hospitalization Jul 03, 2016 at 20:20 Discharge Diagnosis Discharge Diagnosis #1. Acute upper respiratory tract infection, secondary to human metapneumovirus , poa, resolved #2. Acute bacteremia, poa, resolved #3. Acute hypoxemic respiratory failure, poa, resolved #4. Acute left hip pain after recent ground-level fall, poa, active, stable #5. Acute lower back pain, notpoa, active, stable #6. Elevated transaminase level, chronic, poa, resolved #7. 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 Acute sepsis, poa, resolved Medication Instructions I gave you a prescription for a few pain pills for your hip and back pain. Please use it sparingly and follow up with your PCP as soon as possible if your hip/back pain continues and/or worsens. Diet Heart Healthy Activity Limited until seen by PCP Call your provider Fever or Chills, Shortness of breath, Bleeding, Chest pain, Vomitting, Excessive diarrhea, Weakness (unilateral) Patient Instructions Follow-up Provider: Piotr Samano MD Follow-up with PCP in: 1 week Eleazar Galindo MD 07/11/16 1259: Rosario Avalos DO Jul 10, 2016 12:11 Eleazar Galindo MD Jul 11, 2016 12:59
[2016-07-10] MEDS ORDERED: HYDR-4003 PO (12:14)
--- NOTE | 2016-07-10 13:04 | NUR ---
Social Work-discharge: Data:EMR Reviewed. Pt is on day 5 of hospitalization for weakness per h&P. Pt is medically stable to discharge today. PT has cleared pt for home with outpt pt vs HH. Pt and continue to decline HH, wanting outpt PT. SW confirms plan with pt and . Pt's to provide transport home. No discharge needs identified. All updated and agreeable to plan. Assessment:pt who is independent at baseline. Plan:Pt to discharge home today via POV. No discharge needs identified. All updated and agreeable to plan. RAVIN Terrell
--- NOTE | 2016-07-10 14:01 | NUR ---
Discharge Pt discharged at this time, all belongings gathered and returned to pt. VSS, no complains of SOB or increased pain, Hard copy of script given to pt to fill. IV D/Cd intact, Tele monitor removed. Discharge packet printed and reviewed with pt and spouse. Pt taken from [facility] by SHARON in wheelchair, to be transported home in private vehicle driven by spouse.
--- NOTE | 2016-07-10 14:04 | PCM.DC.MED ---
Discharge Summary Date of Service Jul 10, 2016 Dates of Hospitalization Date of Hospital Admission Jul 03, 2016 at 20:20 Date of Discharge: Jul 10, 2016 Providers: Admitting Physician: Danna Calixto DO Primary Care Physician: Piotr Samano MD Attending Physician: Danna Calixto DO Diagnosis at Time of Discharge Diagnosis at Time of Discharge #1. Acute upper respiratory tract infection, secondary to human metapneumovirus , poa, resolved #2. Acute bacteremia, poa, resolved #3. Acute hypoxemic respiratory failure, poa, resolved #4. Acute left hip pain after recent ground-level fall, poa, active, stable #5. Acute lower back pain, notpoa, active, stable #6. Elevated transaminase level, chronic, poa, resolved #7. 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 Acute sepsis, poa, resolved Procedures XRay, CTs & MRIs X-RAY CHEST ONE VIEW, PORTABLE IMPRESSION: Persistent minimal costophrenic angle blunting without gross consolidation. Dictated by: Estelle Lowe M.D. on 07/03/2016 at 17:43 Approved by: Estelle Lowe M.D. on 07/03/2016 at 17:44 PROCEDURE: X-RAY PELVIS W/LAT HIP (LT) ([id number]) IMPRESSION: No fracture or dislocation. If clinical symptoms persist or clinical suspicion for pathology is high, a repeat examination in 7-10 days, or advanced imaging such as CT or MRI is suggested for further evaluation. Dictated by: Sunny Rico M.D. on 07/04/2016 at 9:48 Approved by: Sunny Rico M.D. on 07/04/2016 at 9:50 PROCEDURE: MRI PELVIS WITHOUT CONTRAST ([id number]) IMPRESSION: 1. Negative for occult fracture. 2. No joint effusion, musculotendinous or ligamentous tear. 3. Small amount of free fluid within the pelvis is indeterminate. If splenic or other organ injury is suspected clinically, CT abdomen and pelvis is suggested. Dictated by: Emil Hinton M.D. on 07/06/2016 at 16:51 Approved by: Emil Hinton M.D. on 07/06/2016 at 16:57 PROCEDURE: X-RAY LUMBAR SPINE, 2 OR 3 VIEW IMPRESSION: Mild multilevel degenerative change. Dictated by: Brice CARRANZA Interpreted: Estelle Lowe MD on 07/06/2016 at 14: 20 Transcribed by: SHAAN on 07/06/2016 at 14:22 Approved by: Estelle Lowe M.D. on 07/06/2016 at 16:58 . Cardiac Echo Impression Echocardiogram Report Interpretation Summary The left ventricle is normal in size, wall thickness, and systolic function without any focal wall motion abnormalities. The ejection fraction is estimated to be 60-65%. LVEF has not changed since prior study. The right ventricle grossly appears normal in size with probable normal systolic function. The left atrial size is normal. Right atrial size is normal. The interatrial septum is intact with no evidence for an atrial septal defect. There is no Doppler evidence for an interatrial shunt. The aortic root is normal size. There is moderate to severe luminal irregularity and echogenicity in the abdominal aorta, suggestive of aortic atherosclerotic disease. No obvious source for cardioembolic CVA/TIA. Reading Physician:PM Brief History Per Admitting Physician: Danna Calixto DO: Patient is a 71 year old male with a history of hypertension, alcohol and tobacco abuse, psoriasis, possible cirrhosis and COPD is brought to the ED via EMS due to weakness. The patient has been experiencing falls for approximately one year. Per patient's , he has been falling less frequently in recent months, but fell two days ago during dinner. Patient states at that time he felt like he was about to pass out. The fall was unwitnessed and the patient is unsure of the cause. He has been experiencing lower back pain since, but denies other trauma. He denies any current pain and/or use of Tylenol and/or Ibuprofen. He was able to ambulate normally with his cane yesterday but was moving more slowly today. He was unable to ambulate properly at all this afternoon. The reports that the patient was unable to move his left leg, though his left arm was functioning normally. He denies left leg pain while walking. The patient has also been experiencing "cold-like" symptoms recently, including a productive cough and rough breath sounds. He denies fever, chills, dysuria, or vomiting. The patient has been seen by multiple specialists for his falls without a diagnosis. He states he has been a heavy drinker for bout 50 years, currently he is having two drinks per day. His last drink was today and consisted of two glasses of wine. He has been smoking for about 30 years and currently is smoking one pack a day. His PCP is Dr. Samano at [facility] in [place]. In the ED temp was 36.0 C, pulse 81, respiration 25, BP 107/73, pulse ox 88% on room air. Patient's CBC significant for normal WBC at 8.1, H&H 14.0&42. Chem Na 141, K 4.5, Cl 92, CO2 20, BUN 31, Cr 1.42, lactic acid 3.2, AST 305, ALT 112. EKG showed NSR with a rate of 82. Chest x-ray revealed persistent minimal costophrenic angle blunting without gross consolidation. Hospital Course #1. Acute upper respiratory tract infection, secondary to human metapneumovirus, poa, resolved - Patient is a chronic smoker and presented with URI symptoms x 10 days - Respiratory viral PCR positive for human metapneumovirus - Chest x-ray (07/03) showed persistent costophrenic angle blunting without gross consolidation - Supportive treatment with supplemental oxygen as needed and rest #2. Acute bacteremia, poa, resolved - Bacteremic strep pneumonia infection (+blood cultures, + urine strep. pnem. Ag ) - Unclear source of bacteremia, chest x-ray does not show new infiltrates - Continue Ceftriaxone IV 2 g qd - Repeat blood cultures 2 pending - Procalcitonin 0.5, CRP 11.1 #3. Acute hypoxemic respiratory failure, poa, resolved - SpO2 88% on room air on admission. - Currently SpO2 94 % on room air - AccuNeb q2h PRN sob and DuoNeb 4 times a day while awake - Continue to monitor vital signs closely #4. Acute left hip pain after recent ground-level fall, poa, active, stable - Likely due to recent fall 2 days ago with history of multiple falls - Hip/pelvis x-ray showed no fracture or dislocation. - Pelvis MRI negative for occult fracture, joint effusion, ligamentous tear. Small amount of free fluid in pelvis - Lutz 5/325 q6h PRN for pain - PT evaluation #5. Acute lower back pain, notpoa, active, stable - Possibly due to his recent fall at home a few days ago - X-ray lumbar showed degenerative changes present at L5-S1 - Continue Lutz 5/325 q6h PRN for pain and lorazepam 0.5 mg IV q6h PRN - Follow up with PCP as outpatient #6. Elevated transaminase level, chronic, poa, resolved - AST normal, ALT 52, Alk.phosphatase normal - No h/o blood transfusions, tattoos, IV drug use or hepatitis (hepatitis panel negative in 2015) - H/o chronic alcohol use for years - Ammonia slightly elevated continue to monitor for signs of hepatic encephalopathy - Recommend outpatient work up with PCP #7. 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 Acute sepsis, poa, resolved - SIRS criteria met including: Tachypnea (respiratory rate 34), probable tachycardia however on a beta pam, likely sources include left lower extremity cellulitis and pulmonary. - Early goal-directed therapy met including: IV fluid resuscitation and broad- spectrum antibiotics Chronic problems: #10. Hypertension, chronic. Stable. - Continue home medications. PRN antiemetics: Zofran and Maalox. PRN bowel regimen: Senna and MiraLAX. PRN analgesics: Tylenol. Exam Vital Signs (Last) Date Time Temp Pulse Resp B/P Pulse Ox O2 Delivery O2 Flow Rate FiO2 07/10/16 13:16 36.6 67 16 139/79 93 Room Air 07/07/16 00:53 1.00 Exam General: Elderly gentleman in no acute distress, cachectic HEENT: NCAT, PERRL, anicteric sclerae Neck: Supple, no JVD, no lymphadenopathy Cardiovascular: RRR, no m/r/g Lungs: Mild rhonchi on auscultation b/l , normal respiratory effort with no use of accessory muscles. Abdomen: Soft, nontender Extremities: mild tenderness over left posterior hip Skin: Psoriatic rash with extensive plaque on left ankle with improved erythema Test 07/03/16 16:31 07/03/16 16:57 07/03/16 21:07 07/03/16 21:52 Prothrombin Time 10.1sec (8.1-12.5) Prothromb Time International Ratio 0.95ratio Band Neutrophils % 9% (1-5) Hold Purple Top Tube Received (Received) Hold Blue Top Tube Received (Received) Hold Red Top Tube Received (Received) Hold [place] Top Tube Received (Received) Urine Color Yellow (YELLOW) Urine Appearance Clear (CLEAR,HAZY) Urine pH 5.5 (5.0-8.0) Urine Specific [place] 1.028 (1.003-1.035) Urine Protein 100mg/dL (NEG,TRACE) Urine Glucose (UA) Negativemg/dL (NEGATIVE) Urine Ketones Tracemg/dL (NEGATIVE) Urine Occult Blood Small (NEGATIVE) Urine Nitrite Negative (NEGATIVE) Urine Bilirubin Negative (NEGATIVE) Urine Urobilinogen Normalmg/dL (NORMAL) Urine Leukocyte Esterase Negative (NEGATIVE) Urine RBC 3-10/hpf (0-2) Urine WBC 0-5/hpf (0-5) Urine Epithelial Cells Occasional/hpf (NONE-MOD) Urine Crystals None seen (NONE SEEN) Urine Bacteria Few/hpf (NONE-FEW) Urine Hyaline Casts None/lpf (NONE) Urine Granular Casts None seen (NONE SEEN) Urine Waxy Casts None seen (NONE SEEN) Urine Red Blood Cell Casts None seen (NONE SEEN) Urine White Blood Cell Casts None seen (NONE SEEN) Urine Mucus None seen (None Seen) Urine Trichomonas None seen (NONE SEEN) Urine Yeast None (NONE SEEN) Urinalysis Comment None Urine Culture Reflexed Not indicated Ammonia 86ug/dL (18-53) Test 07/04/16 08:14 07/04/16 14:48 07/05/16 08:30 07/05/16 09:20 Lactic Acid Level 1.7mmol/L (0.4-2.0) HIV (1&2) Ag and Ab, 4th Generation Non reactive (Non Reactive) Streptozyme 595.3IU/mL (0.0-200.0) Urine Legionella pneumophilia Ag Negative (Negative) Test 07/09/16 06:40 07/10/16 06:05 C-Reactive Protein 11.1mg/dL (0.0-0.5) White Blood Count 7.0th/mm3 (3.8-10.1) Red Blood Count 3.07mil/mm3 (4.40-5.80) Hemoglobin 10.3g/dL (13.8-17.2) Hematocrit 30.2% (41.0-50.0) Mean Corpuscular Volume 98.4fL (81-100) Mean Corpuscular Hemoglobin 33.6pg (27.0-35.0) Mean Corpuscular Hemoglobin Concent 34.1% (32.0-37.0) Red Cell Distribution Width 14.5% (12.3-15.4) Platelet Count 235bil/L (150-400) Neutrophils (%) (Auto) 79.3% (40-74) Lymphocytes (%) (Auto) 8.9% (14-46) Monocytes (%) (Auto) 10.0% (4-12) Eosinophils (%) (Auto) 1.1% (0-5) Basophils (%) (Auto) 0% (0-3) Sodium Level 137mEq/L (134-144) Potassium Level 4.6mEq/L (3.5-5.2) Chloride Level 100mEq/L (97-108) Carbon Dioxide Level 27mmol/L (18-29) Blood Urea Nitrogen 34mg/dL (8-27) Creatinine 1.02mg/dL (0.76-1.27) Estimat Glomerular Filtration Rate 77mL/min (>59) Glucose Level 87mg/dL (60-99) Calcium Level 8.3mg/dL (8.5-10.1) Total Bilirubin 0.2mg/dL (0.0-1.2) Aspartate Amino Transf (AST/SGOT) 38U/L (0-50) Alanine Aminotransferase (ALT/SGPT) 52U/L (0-44) Alkaline Phosphatase 158U/L (25-160) Total Protein 5.8g/dL (6.4-8.4) Albumin 2.6g/dL (3.4-5.0) Procalcitonin 0.50ng/mL (0.00-0.08) Microbiology Results Microbiology CHARITY STREP PNEUMONIAE AG URINE Final 07/05/16-1015 STREP PNEUMO AG POSITIVE Tests performed directly on clinical specimens are intended for screening purposes only and should augment, not replace, culture procedures Please Note: Streptococcus pneumoniae vaccine may cause false positive results in urine in the 48 hours following injection. Hence, it is recommended that the Alere Strep pneumoniae Antigen testing not be performed within five days of receiving the S. pneumoniae vaccine Organism 1 STREP PNEUMONIAE ANTIGEN DATE CALLED: 07/05/16 TIME CALLED: 1014 FLOOR/DOCTOR: CALLED PREVIOUSLY Microbiology ADENOVIRUS RESPIRATORY PCR Final 07/04/16-926 Not Detected CORONOVIRUS 229E Final 07/04/16 Not Detected CORONOVIRUS HKU1 Final 07/04/16 Not Detected CORONOVIRUS NL63 Final 07/04/16 Not Detected CORONOVIRUS OC43 Final 07/04/16 Not Detected INFLUENZA A PCR Final 07/04/16 Not Detected INFLUENZA B PCR Final 07/04/16 Not Detected METAPNEUMOVIRUS PCR Final 07/04/16 Organism 1 HUMAN METAPNEUMOVIRUS METAPNEUMOVIRUS PCR DETECTED TIME CALLED: 925 DATE CALLED: 07/04/16 FLOOR/DOCTOR: TAHIR/MALLY Reyes CALLED BY: VS RHINOVIRUS OR ENTEROVIRUS PCR Final 07/04/16 Not Detected PARAINFLUENZA 1 PCR Final 07/04/16 Not Detected . Discharge Medications Discharge Medications Amlodipine (Norvasc) 5 Mg Tablet 5 MG PO DAILY Prescribed by: JERE KO DO Aspirin (Aspirin) 81 Mg Tablet 81 MG PO DAILY (Reported) Atorvastatin (Lipitor) 40 Mg Tablet 40 MG PO HS (Reported) Nadolol (Nadolol) 20 Mg Tablet 20 MG PO DAILY Prescribed by: JERE KO DO As needed Hydrocodone-Acetaminophen 5-325 mg (Hydrocodone-Acetaminophen 5-325 mg) 1 Each Tablet 1 TABLET PO BID PRN PRN For Pain Prescribed by: MARTHA ATKINSON DO Miscellaneous Medications ([stelara]) Unknown Strength Unknown Dose INJ (Reported) Additional med instructions I gave you a prescription for a few pain pills for your hip and back pain. Please use it sparingly and follow up with your PCP as soon as possible if your hip/back pain continues and/or worsens. Followup Plan Discharge Diet: Heart Healthy Discharge Activity: Limited until seen by PCP Follow-up Provider: Piotr Samano MD Follow-up with PCP in: 1 week Time spent 35 minutes Attending Statement The patient was seen and examined together with Dr. Atkinson on 07/10/2016 and I agree with the history, exam and plan as outlined in the note above. Martha Atkinson DO Jul 10, 2016 14:04 Eleazar Galindo MD Jul 11, 2016 13:00
== END 2016-07-10 14:03 | disposition home or self-care (01) | DRG 871 ==
LOC: EDBD 16:45 → EDUNIT# 16:45 → SED 16:45 → MPC 20:20
PROVIDERS: ADMIT Internal Medicine; ATTEND Internal Medicine
DX: A40.3 Sepsis due to Streptococcus pneumoniae (principal); R65.20 Severe sepsis without septic shock; J96.01 Acute respiratory failure with hypoxia; E87.2 Acidosis; L03.116 Cellulitis of left lower limb; R29.6 Repeated falls; K21.9 Gastro-esophageal reflux disease without esophagitis; D69.6 Thrombocytopenia, unspecified; M25.552 Pain in left hip; I12.9 Hypertensive chronic kidney disease with stage 1 through stage 4 chronic kidney disease, or unspecified chronic kidney disease; F17.200 Nicotine dependence, unspecified, uncomplicated; N18.2 Chronic kidney disease, stage 2 (mild); L40.9 Psoriasis, unspecified; J06.9 Acute upper respiratory infection, unspecified; K74.60 Unspecified cirrhosis of liver; Z91.81 History of falling; Z79.82 Long term (current) use of aspirin; Z88.0 Allergy status to penicillin; Z72.89 Other problems related to lifestyle